=== PATIENT | female | born 1965 | race Caucasian/White ===

== ENCOUNTER 2020-02-09 18:08 | Observation (INO) | payer OTHER, SELFPAY ==
--- NOTE | ~2020-02-09 | XR_ITS ---
EXAMINATION: XR chest 1V portable EXAM DATE: 02/09/2020 19:18 INDICATION: History of stroke. Right arm tingling, right-sided chest pain. TECHNIQUE: Portable AP frontal chest x-ray was obtained. There is no prior study for comparison. FINDINGS: There is right upper lobe granuloma. The lungs are otherwise clear. There are no pleural e ffusions. The cardiomediastinal silhouette is within normal limits. There is no pneumothorax suspec clint. The bones and soft tissues are unremarkable. Cervical fusion hardware. IMPRESSION: No acute cardiopulmonary findings. Reviewed, dictated and finalized at location A.
--- NOTE | ~2020-02-09 | CT_ITS ---
EXAMINATION: CT brain wo con EXAM DATE: 02/09/2020 19:09 INDICATION: Right upper extremity drift. Thyroid cancer. TECHNIQUE: Spiral CT of the head was performed without contrast. Axial, coronal and sagittal images were reviewed. The dose-length product (DLP) for this examination was 605.33 mGy-cm. The exposure w as tailored according to patient size, and iterative reconstruction (ASIR) was used as additional dos e reduction technique. There is no prior study for comparison. FINDINGS: There is no acute intraparenchymal hemorrhage. No evidence of intraparenchymal brain mass lesion. No evidence of acute infarction. There is no mass effect or midline shift. The ventricles are normal in size. There are no extra-axial collections. There are no acute calvarial fractures. T he orbits are unremarkable. Soft tissue is unremarkable. The visualized sinuses and mastoid air erika ls are well aerated. IMPRESSION: 1. No acute intracranial findings. Reviewed, dictated and finalized at location A.
--- NOTE | ~2020-02-09 | CT_ITS ---
EXAMINATION: CTA brain carotid EXAM DATE: 02/09/2020 20:37 INDICATION: Right extremity paresthesia, right arm drift. TECHNIQUE: Spiral CTA of the carotid arteries was performed with intravenous injection 100 cc of Om nipaque 350. Axial, coronal, sagittal reformatted images reviewed. Additional reformatted images cre ated on dedicated 3-D workstation. NASCET comparable standard used to assess the degree of arterial stenosis. Spiral CT angiogram cerebral arteries performed with the same intravenous injection of con trast. Source images of the brain CTA transferred to dedicated workstation for 3-D rotational image c reation. Coronal, sagittal maximum intensity pixel images also reviewed. The dose-length product (D LP) for this examination was 1104.43 mGy-cm. The exposure was tailored according to patient size, a nd iterative reconstruction (ASIR) was used as additional dose reduction technique. Correlation is ma de to head CT earlier same date. FINDINGS: Mild bilateral carotid bulb arterial sclerosis, 0% stenosis bilaterally. Carotid siphons ar e widely patent. Vertebral arteries are codominant. There is no carotid or vertebral basilar arteria l dissection or fibromuscular dysplasia. There are no cerebral artery aneurysms. There is symmetric c erebral artery arborization. The sagittal, transverse and sigmoid sinuses enhance normally, no venous sinus thrombosis. Internal cerebral veins also enhance normally. IMPRESSION: No carotid stenosis or acute findings. Reviewed, dictated and finalized at location A.
--- NOTE | ~2020-02-09 | MR_ITS ---
EXAMINATION: MR brain/brain stem wo/w con DATE: 02/10/2020 15:09 INDICATION: Paresthesias. Cerebral vascular accident. TECHNIQUE: Magnetic resonance imaging (MRI) of the brain and brainstem was performed without and with 12 mL MultiHance intravenous contrast. Sequences included sagittal and axial T1-weighted FSE, axial diffusion-weighted FS EPI, axial T2*-weighted GRE, axial T2-weighted FLAIR Propeller, and axial T2-we ighted Propeller. Postcontrast sequences included axial and coronal T1-weighted FSE. Apparent diffusi on coefficient (ADC) maps were created. COMPARISON: Head CT 02/09/2020 FINDINGS: There is an empty sella. There are scattered areas of nonspecific increased T2-weighted s ignal intensity in the cerebral white matter, which is within normal limits for the patient's age. Th ere is no intracranial hemorrhage, acute infarction, or abnormal intracranial mass lesion. The ventri cles are normal in size. The orbits are normal. The paranasal sinuses are clear. The mastoid air cell s are normal. IMPRESSION: 1. No acute intracranial pathology. Reviewed, dictated and finalized at location A.
[2020-02-09 18:29] VITALS: BP 142/67; PULSE 71; RESP 12; TEMP 37; O2SAT 97
--- NOTE | 2020-02-09 18:38 | ECG_ITS ---
Measurements Intervals Heath Rate: 88 P: 68 SC: 180 QRS: -48 QRSD: 93 T: 62 QT: 380 QTc: 461 Interpretive Statements SINUS RHYTHM LEFT ANTERIOR FASCICULAR BLOCK BASELINE ARTIFACT- I, III, AVL, V2 ABNORMAL ECG Electronically Signed On 02-09-2020 21:29:47 CDT by John Mccloud D.O.
[2020-02-09 19:03] LABS: Basophils Absolute Auto 0.1 K/mm3 (0.0-0.1); Basophils Percent Auto 0.8 % (0.2-1.2); Eosinophils Percent Auto 0.1 % (0-4.4); Hematocrit 39.2 % (37.0-47.0); Hemoglobin 13.4 g/dL (12.0-15.0); Immature Granulocyte Absolute 0.04 K/mm3 (0.00-0.031); Immature Granulocyte Percent A 0.3 % (0-0.5); Lymphocytes Absolute Auto 4.47 K/mm3 (0.9-3.2); Lymphocytes Percent Auto 38.6 % (18.3-44.2); Mean Corpuscular HGB Conc 34.2 g/dl (32-36); Mean Corpuscular Hemoglobin 28.9 pg (26-34); Mean Corpuscular Volume 84.7 fl (80-100); Mean Platelet Volume 8.9 fl (7.4-10.4); Monocytes Absolute Auto 0.5 K/mm3 (0.1-0.6); Monocytes Percent Auto 4.6 % (2.6-8.5); Neutrophils Absolute Auto 6.5 K/mm3 (1.3-6.7); Neutrophils Percent Auto 55.6 % (45.5-73.1); Platelet Count Result 319 k/mm3 (150-375); Red Blood Count 4.63 M/mm3 (4.2-5.4); Red Cell Distribution Width 12.8 % (11.5-14.5); White Blood Count 11.6 K/mm3 (4.5-10.0)
[2020-02-09 19:14] LABS: Anion Gap 2 mmol/L (8-16); Atypical Lymphocytes Present; Blood Urea Nitrogen 9 mg/dL (7-17); Calcium 9.4 mg/dL (8.4-10.2); Carbon Dioxide 32 mmol/L (22-30); Chloride 102 mmol/L (98-107); Estimated CRCL calculation 77 ml/min; Estimated Glomerular Filt Rate > 60; Glucose 268 mg/dL (65-105); Platelet Estimate Adequate (Adequate); Potassium 4.2 mmol/L (3.4-5.0); Sodium 136 mmol/L (137-145)
[2020-02-09 19:18] LABS: INR 0.9; Prothrombin Time 12.1 Seconds (11.1-14.7)
[2020-02-09 19:19] LABS: Partial Thromboplastin Time 36.6 SECONDS (22.3-36.8)
[2020-02-09 19:21] LABS: Glucose Point of Care 238 (65-105)
[2020-02-09 19:26] LABS: Troponin I < 0.012 ng/mL (0.000-0.034)
[2020-02-09 19:30] VITALS: BP 121/82; PULSE 89; RESP 18; O2SAT 97
--- NOTE | 2020-02-09 19:37 | ED.GENADULT ---
HPI - General Adult General Chief complaint: Extremity Problem,Nontraumatic Stated complaint: PINS AND NEEDLE SENSATION Time Seen by Provider: 02/09/20 18:31 History of Present Illness HPI narrative: Patient is a 54-year-old female who presents ER with body tingling. Patient reports that she was at home when she started develop numbness and tingling to bilateral hands and arms, the entirety of her face, and then her right foot. Symptoms have been persistent. No slurred speech or functional weakness. Patient does have history of previous CVA. Patient is unsure of what time the symptoms began but thinks it could be anywhere from 2 to 3 hours prior to arrival. Patient also reports she has posterior headache. She does have history of migraines. Does not typically have neurologic variant like this. Related Data Home Medications Medication Instructions Recorded Confirmed glipizide 10 mg PO DAILY 02/09/20 02/09/20 insulin glargine [Basaglar KwikPen 34 unit SUBCUT QPM 02/09/20 02/09/20 U-100 Insulin] levothyroxine 137 mcg PO DAILY 02/09/20 02/09/20 liraglutide [Victoza 2-Claudio] 0.6 mg SUBCUT DAILY 02/09/20 02/09/20 metformin 500 mg PO BID 02/09/20 02/09/20 olanzapine 10 mg PO DAILY 02/09/20 02/09/20 omeprazole 20 mg PO DAILY 02/09/20 02/09/20 sumatriptan succinate 100 mg PO DAILY PRN 02/09/20 02/09/20 tizanidine 2 mg PO HS 02/09/20 02/09/20 trazodone 200 mg PO HS 02/09/20 02/09/20 vit D3-vit K2-ca fructoborate 1 tablet PO WEEKLY 02/09/20 02/09/20 Allergies Allergy/AdvReac Type Severity Reaction Status Date / Time fluoxetine [From Prozac] Allergy Unknown Verified 02/09/20 18:39 ketorolac [From Toradol] Allergy Unknown Verified 02/09/20 18:38 steroids Allergy Unknown Uncoded 02/09/20 18:39 Review of Systems Review of Systems: All systems reviewed & are unremarkable except as noted in HPI and below Constitutional: Constitutional: Denies chills, Denies fever(s) and Denies weakness Eyes: Eyes: Denies change in vision ENT: Denies nasal congestion and Denies sore throat Respiratory: Respiratory: Denies cough and Denies dyspnea Gastrointestinal: Gastrointestinal: Denies abdominal pain, Reports nausea and Denies vomiting Neurologic: Denies dizziness, Reports headache(s), Reports numbness and Denies weakness PMFSH Past Medical History Medical History (Updated 02/10/20 @ 00:20 by Miguel Agrawal MD) CVA (cerebral vascular accident) Diabetes type 2, controlled Hypothyroidism Migraine Surgical History Surgical History (Updated 02/09/20 @ 19:49 by Miguel Agrawal MD) H/O: hysterectomy History of cholecystectomy Previous section Family History Family History (Updated 02/09/20 @ 21:34 by Chandler Sim RN) Grandparent Acute myocardial infarction Hypertension Diabetes mellitus Social History Social History (Updated 02/09/20 @ 19:49 by Miguel Agrawal MD) Smoking packs per day: 0.5 Smoking cigarettes per day: 10.0 Years smoked: 10 Smoking pack-years: 5.00 Smoking status: Current every day smoker Tobacco type: cigarettes Second hand tobacco smoke exposure: No Alcohol intake: never Substance use: never Substance use type: does not use Gender identity (if verbalized by the patient): Female Sexual Orientation (if Verbalized by the Patient): Straight or Heterosexual Spiritual care concerns: No Exam Narrative: Exam Narrative: GENERAL: Well-appearing, well-nourished, and in no acute distress. HEAD: Normocephalic, atraumatic. EYES: PERRL and EOMI. ENT: Mucous membranes moist. CHEST: Clear to auscultation. No respiratory distress. HEART: Regular rate and rhythm. Normal peripheral pulses. ABDOMEN: Soft, nontender, nondistended. EXTREMITIES: Normal range of motion. No edema. SKIN: Warm, dry, no rash. NEURO: Cranial nerves II through XII intact. No sharp touch deficit to the face/arms/legs despite feeling of paresthesia. No lower extremity drift. Very slight
[2020-02-09] MEDS: ONDANSETRON INJ 4 MG/2 ML VIAL IV PUSH (19:39)
[2020-02-09] MEDS: MORPHINE SULFATE (*CRX) 2 MG/ML INJ IV PUSH (19:39)
[2020-02-09] MEDS: ASPIRIN 81 MG ENTERIC TABLET PO (20:45)
[2020-02-09] MEDS: CLOPIDOGREL BISULFATE 75 MG TABLET PO (20:45)
[2020-02-09 20:46] VITALS: BP 120/79; PULSE 86; RESP 20; O2SAT 100
[2020-02-09 21:10] VITALS: BP 145/92; PULSE 84; RESP 18; TEMP 36.3; O2SAT 100; BMI 26.5
--- NOTE | 2020-02-09 21:38 | ADMGEN ---
This patient, Kathi Minaya, was admitted to 3 [facility] Surg Room 300-01. Patient/family oriented to hospital policies and general routines including ID bracelet, bed and alarms, visiting hours, pain management, procedures, bathroom and other care routines, personal items, smoking policy, room service/diet, and visiting hours. Information on how to activate the Rapid Response Team has been discussed. Patient/Family are encouraged to report perceived risks to care and to ask questions if they do not understand what they are told or what they should do.
[2020-02-09 22:00] VITALS: BP 145/92; PULSE 84; RESP 18; TEMP 36.3; O2SAT 100
[2020-02-10] VITALS (9 sets, daily range): BP systolic 112–138; BP diastolic 66–86; PULSE 79–90; RESP 16; TEMP 36.3–36.9; O2SAT 95–99
--- NOTE | 2020-02-10 | ECHO_ITS ---
Patient Info Name: Kathi Minaya Age: 54 years : 1965 Gender: Female Ht: 63 in Wt: 145 lbs BSA: 1.72 m2 HR: 73 bpm BP: 138 / 86 mmHg Heart Rhythm: Sinus Rhythm Exam Date: 02/10/2020 7:30 AM Exam Location: [facility] Pulmonary Patient Status: Inpatient Admit Date: 02/09/2020 Staff Ordering Physician: Miguel Agrawal MD Metallurgical Specialist: Regina Hollingsworth RDCS Attending Provider: Marly Muñoz PA-C Referring Physician: Nghia CHERRY; Exam Type: CA echo limited w bubble study Study Info Limited two-dimensional transthoracic echocardiogram is performed with agitated saline. Contrast/Agitated Saline Contrast/Ag. Saline: Agitated Saline Amount: 7.00 ml Summary 1. Intact interatrial septum visualized by agitated saline imaging. 2. aggitated saline injection did not reveal any evidence of an intracardiac shunt. Left Ventricle Left ventricular chamber dimension is normal. Left ventricular systolic function is normal, estimated at 60-65%. Right Ventricle Right ventricular chamber dimension is normal. Left Atria Left atrial chamber dimension is normal. Right Atria Right atrial chamber dimension is normal. Atrial Septum Intact interatrial septum visualized by agitated saline imaging. aggitated saline injection did not reveal any evidence of an intracardiac shunt. Aortic Valve The aortic valve is normal. Pulmonic Valve The pulmonic valve is not well visualized. Mitral Valve The mitral valve has normal leaflets. Tricuspid Valve The tricuspid valve leaflets are normal. Pericardium/Pleural The pericardium appears normal. Aorta The aortic root size at the sinus of Valsalva is not well visualized. Report Signatures
--- NOTE | 2020-02-10 04:29 | PM.IMHP ---
H&P: HPI History of Present Illness Date/Time: 02/10/20 04:29 Chief complaint: Stroke Symptoms Narrative: Kathi Minaya is a 54 year old female Who just recently moved here from [place]. The patient has had neck surgery and back Surgery in the past. She also has bipolar disorder. She is also diabetic. She denies any peripheral neuropathy. She not denies any recent injury. She recently did move here from [place]. She has been under a lot of stress. She states that she checked her blood sugars today and they are in the 200s which is better than with the usually are. They are usually not very well controlled. She denies having any peripheral neuropathy. She denies having any neck injury although she has had neck surgery in the past. She states that she found a primary care doctor but cannot get into the primary care doctor until March. The patient stated that she has had a stroke before please not on any aspirin or Plavix. The patient was at home today when she developed a migraine and had tingling to bilateral hands and arms. Her entire face in the right foot was numb. She states she has not had these symptoms with migraines in the past. She does take Imitrex but did not take any today. The symptoms began 2-3 hours prior to coming to the emergency room. There was some discussion about tPA but the patient refused. The patient's speech is clear and she has no focal weakness. There are too many risk involved for the patient have tPA at this time. Her stroke scale was 1 and then 0. Head neck CTA was read as no carotid stenosis or acute findings. CT scan of the head no acute intracranial findings. Patient continues to complain of a headache or migraine. She states that her migraines are usually in the front but today it is in the back. She has no difficulty speaking walking or moving. She moves all extremities no focal weakness. The patient has had a history of having carpal tunnel release in the past. She said this feels different. Neurology has been consulted and agreed to see the patient. Patient is being admitted observation to [facility] on the date of service of 02/10/2020 Review of Systems Review of Systems: All systems reviewed & are unremarkable except as noted in HPI and below Constitutional: Constitutional: Reports as per HPI and Reports no additional constitutional complaints Eyes: Eyes: Reports as per HPI and Reports no additional eye complaints ENT: Reports system reviewed and no additional complaints, except as documented and Reports Normal hearing present Cardiovascular: Cardiovascular: Reports no additional cardiovascular complaints Respiratory: Respiratory: Reports no additional respiratory complaints and Reports no additional respiratory complaints Gastrointestinal: Gastrointestinal: Reports as per HPI and Reports no additional gastrointestinal complaints Musculoskeletal: Musculoskeletal: Reports no additional musculoskeletal complaints Integumentary/Breasts: Skin/Breast: Reports system reviewed and no additional complaints, except as docu and Reports as per HPI Neurologic: Reports system reviewed and no additional complaints, except as documented, Reports as per HPI and Reports Normal hearing present Psychiatric: Psychiatric: Reports no additional psychiatric complaints and Reports as per HPI Endocrine: Endocrine: Reports no additional endocrine complaints Hematologic/Lymphatic: Hematologic/Lymphatic: Reports no additional hematologic/lymphatic complaints Allergic/Immunologic: Allergic/Immunologic: Reports no additional allergic/immunologic complaints PMFSH Past Medical History Medical History (Updated 02/10/20 @ 04:38 by Fany Reynolds NP) Bipolar disorder CVA (cerebral vascular accident) Depression with anxiety Diabetes type 2, controlled Hypothyroidism Migraine Surgical History Surgical History (Updated 02/10/20 @ 04:41 by Fany Reynolds NP) H/O left knee surgery H/O: hy
[2020-02-10] MEDS: LEVOTHYROXINE SODIUM 25 MCG TABLET PO (06:21)
[2020-02-10] MEDS: glipiZIDE 5 MG TABLET 10 MG PO (06:21)
[2020-02-10] MEDS: LEVOTHYROXINE SODIUM 112 MCG TABLET PO (06:21)
[2020-02-10] MEDS: SUMAtriptan SUCCINATE 25 MG TABLET 100 MG PO (06:23)
[2020-02-10] MEDS: LORazepam INJ (*CRX) 2 MG/ML VIAL 0.5 MG IV PUSH (06:28)
[2020-02-10 06:31] LABS: Basophils Absolute Auto 0.1 K/mm3 (0.0-0.1); Basophils Percent Auto 0.6 % (0.2-1.2); Eosinophils Percent Auto 0.1 % (0-4.4); Hematocrit 37.5 % (37.0-47.0); Hemoglobin 12.9 g/dL (12.0-15.0); Immature Granulocyte Absolute 0.02 K/mm3 (0.00-0.031); Immature Granulocyte Percent A 0.2 % (0-0.5); Lymphocytes Absolute Auto 3.84 K/mm3 (0.9-3.2); Lymphocytes Percent Auto 37.3 % (18.3-44.2); Mean Corpuscular HGB Conc 34.4 g/dl (32-36); Mean Corpuscular Hemoglobin 28.2 pg (26-34); Mean Corpuscular Volume 82.1 fl (80-100); Monocytes Absolute Auto 0.5 K/mm3 (0.1-0.6); Neutrophils Absolute Auto 5.9 K/mm3 (1.3-6.7); Neutrophils Percent Auto 56.8 % (45.5-73.1); Platelet Count Result 312 k/mm3 (150-375); Red Blood Count 4.57 M/mm3 (4.2-5.4); Red Cell Distribution Width 12.6 % (11.5-14.5); White Blood Count 10.3 K/mm3 (4.5-10.0)
[2020-02-10 06:48] LABS: Alanine Aminotransferase 19 U/L (4-35); Albumin Level 3.7 g/dL (3.5-5.1); Alkaline Phosphatase 75 U/L (38-126); Anion Gap 5 mmol/L (8-16); Aspartate Amino Transferase 22 U/L (14-36); Bilirubin,Total 0.5 mg/dL (0.2-1.3); Blood Urea Nitrogen 10 mg/dL (7-17); Carbon Dioxide 31 mmol/L (22-30); Chloride 101 mmol/L (98-107); Estimated CRCL calculation 91 ml/min; Estimated Glomerular Filt Rate > 60; Glucose 257 mg/dL (65-105); Magnesium 1.9 mg/dL (1.6-2.3); Potassium 4.2 mmol/L (3.4-5.0); Sodium 137 mmol/L (137-145)
[2020-02-10 08:34] LABS: Free T4 Free Thyroxine Reflex 0.94 ng/dL (0.78-2.19)
[2020-02-10] MEDS: ASPIRIN 81 MG CHEWABLE TABLET PO (08:52)
[2020-02-10] MEDS: NICOTINE (*PBKC) 14 MG PATCH 1 PATCH TRANSDERM (08:53)
[2020-02-10] MEDS: PANTOPRAZOLE SOD SESQUIHYDRATE 20 MG TAB PO (08:53)
[2020-02-10] MEDS: HYDROcodone/acetaminophen (*CRX) 5-325 MG TABLET 1 TAB PO ×2 (08:57→21:32)
[2020-02-10] MEDS: INSULIN ASPART (*BKC) 100 UNITS/ML SUB-Q ×2 (09:04→17:33)
[2020-02-10 09:11] LABS: Glucose Point of Care 242 (65-105)
[2020-02-10 10:42] LABS: Total Triiodothyronine (T3) 1.13 NG/ML (0.97-1.69)
--- NOTE | 2020-02-10 13:44 | PM.IMPN ---
Progress Note: A&P Assessment and Plan (1) Paresthesia: Code(s): R20.2 - Paresthesia of skin Status: Acute Assessment and Plan: complains of tingling in right hand predominantly, and along the right side of body. Etiology is unclear at this time but considerations include acute CVA given her history, carpal tunnel syndroms (hx of bilateral carpal tunnel release), cervical radiculopathy (hx of cervical spine surgery), peripheral neuropathy (hx poorly controlled DM). head CT was negative for any acute findings. CTA head and neck showed no evidence of stenosis. echocardiogram with bubble study was performed and results are pending brain MRI has been ordered and will await results neurology has been consulted recommendations are appreciated continue aspirin (2) Migraine: Qualifiers: Migraine type: without aura Code(s): G43.909 - Migraine, unspecified, not intractable, without status migrainosus Status: Chronic Assessment and Plan: She is complaining of 9/10 occipital migraine pain. No improvement with sumatriptan. No associated visual changes or photophobia. Analgesics available as needed MRI pending Appreciate neurology recommendations. (3) Hypothyroidism: Code(s): E03.9 - Hypothyroidism, unspecified Status: Chronic Assessment and Plan: TSH is elevated at 17. T3 and T4 and within normal limits. She reports compliance with her levothyroxine and denies missing any doses. Reports she had TSH checked about 3 months ago while living in [place] and was told everything was normal at that time. Increase levothyroxine to 150 mg. She will need to repeat TSH with reflex in 4-6 weeks. 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 Blood sugars have been ranging in the 250s. She reports it is unusual for her blood sugars to be under 200. Continue Accu-Cheks ACHS, sliding-scale insulin, and hypoglycemic protocol continue glucotrol Begin lantus with 20% reduction of home dose (5) Bipolar disorder: Code(s): F31.9 - Bipolar disorder, unspecified Status: Chronic Assessment and Plan: Mood is stable at this time. Continue zyprexa. (6) Depression with anxiety: Code(s): F41.8 - Other specified anxiety disorders Status: Chronic Assessment and Plan: Mood is stable at this time. Continue trazodone. Subjective Date/time seen: 02/10/20 13:44 Interval history: date of service: 02/10/2020 Kathi Minaya is a right-handed 54-year-old female with a history of bipolar disorder, CVA, type 2 diabetes mellitus, and migraines who is seen in follow-up for complains of migraine and skin paresthesias. She is currently endorsing a 9/10 occipital headache. She denies any associated visual changes. she denies photophobia or phonophobia. she also complains of tingling on her right side, especially in her right he attend. She notes that her right foot tingles more when she bears weight. She denies speech changes, dysphagia, loss of balance or coordination, gait changes,weakness, or confusion. she feels dizzy upon standing. She endorses nausea but has not vomited. Appetite has been good. No additional concerns at this time. no shortness of breath, cough, chest pain, palpitations, abdominal pain, bleeding, or bruising. Review of Systems Review of Systems: Narrative: Twelve systems reviewed with pertinent positives and negatives as per HPI. Exam Narrative: Exam Narrative: Ms. Minaya is a well-nourished, well-appearing right-handed 54-year-old female who is lying in left lateral decubitus position. She appears comfortable and is in NARD. HR 86, BP 138/86, R 16, T 97.3?, 96% on room air N
[2020-02-10] MEDS: LORazepam INJ (*CRX) 2 MG/ML VIAL 1 MG IV PUSH (14:31)
[2020-02-10] MEDS: HYDROcodone/acetaminophen (*CRX) 10-325 MG TABLET 1 TAB PO (16:17)
--- NOTE | 2020-02-10 16:18 | WPDNEURCNPN ---
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: with process planner use Code(s): E11.9 - Type 2 diabetes mellitus without complications Status: Acute (2) Depression with anxiety: Code(s): F41.8 - Other specified anxiety disorders Status: Chronic (3) Bipolar disorder: Code(s): F31.9 - Bipolar disorder, unspecified Status: Chronic (4) Migraine: Qualifiers: Migraine type: without aura Code(s): G43.909 - Migraine, unspecified, not intractable, without status migrainosus Status: Chronic (5) Hypothyroidism: Code(s): E03.9 - Hypothyroidism, unspecified Status: Chronic (6) Diabetes type 2, controlled: Code(s): E11.9 - Type 2 diabetes mellitus without complications Status: Chronic (7) Paresthesia: Code(s): R20.2 - Paresthesia of skin Status: Acute Additional Plan in the brain MRI shows any evidence of stroke than 1 has to pursue with the echocardiogram to make sure nothing is happening in her heart right now her symptoms could very well be related to combination of the cervical surgery in the past cervical radiculopathy residual carpal tunnel syndrome and also combined with the lumbar radiculopathy as the symptoms are mostly on the right side in the right arm hand and right leg without any focal motor deficit Consult date: 02/10/20 Time Seen: 15:45 HPI: Kathi Minaya is a 54 year old female I am consulted to see her because of the paresthesias of right more than the left side which are stable results of the brain MRI are pending she does complains of neck pain which she has had in the past and also has had back surgery she tells me that she had stroke up roughly about 3 years ago while she was in [place] and was not on aspirin I asked her whether she had brain bleed or it was a speech ischemic stroke she is quite clear that she had a CT ischemic stroke we have started on aspirin and physical status is stable there is no change in the mental status and there is no weakness involved she is able to walk to the bathroom fairly decent and well Review of Systems Review of Systems: All systems reviewed & are unremarkable except as noted in HPI and below PMFSH Past Medical History Medical History Bipolar disorder CVA (cerebral vascular accident) Depression with anxiety Diabetes type 2, controlled Hypothyroidism Migraine Surgical History Surgical History H/O left knee surgery H/O: hysterectomy History of back surgery History of bilateral carpal tunnel release History of cholecystectomy History of neck surgery Previous section Family History Family History Grandparent Acute myocardial infarction Hypertension Diabetes mellitus Father Murder Mother Lung cancer Social History Social History Social History: the patient is and has a fiancee. She has 3 grown children. She is on disability. She denies any alcohol use. She does occasionally smoke marijuana. She still continues to smoke half a pack a cigarettes a day for over 10 years. She recently moved in with her best friend in this area she otherwise she is from [place]. She now has a fiancee. She does not have a durable power of staff attorney for health care and desires to be a full code. She denies any illicit drugs but has used marijuana to help with the pain. Smoking packs per day: 0.5 Smoking cigarettes per day: 10.0 Years smoked: 10 Smoking pack-years: 5.00 Smoking status: Current every day smoker Tobacco type: cigarettes Second hand tobacco smoke exposure: No Alcohol intake: never Substance use type: marijuana Living arrangements: with friend(s) [facility]
[2020-02-10 21:14] LABS: Glucose Point of Care 275 (65-105)
[2020-02-10] MEDS: traZODone HCL 50 MG TABLET 200 MG PO (21:32)
[2020-02-10] MEDS: TIZANIDINE HCL 2 MG TABLET PO (21:32)
[2020-02-10] MEDS: INSULIN GLARGINE (*BKC) 100 UNITS/ML 28 UNITS SUB-Q (21:36)
[2020-02-10 21:42] LABS: Glucose Point of Care 199 (65-105)
[2020-02-11] VITALS: PULSE 78
[2020-02-11 04:00] VITALS: PULSE 93
[2020-02-11 06:00] VITALS: BP 108/76; PULSE 87; RESP 18; TEMP 36.3; O2SAT 97
[2020-02-11 06:24] LABS: Hematocrit 38.2 % (37.0-47.0); Hemoglobin 12.9 g/dL (12.0-15.0); Mean Corpuscular HGB Conc 33.8 g/dl (32-36); Mean Corpuscular Hemoglobin 28.7 pg (26-34); Mean Corpuscular Volume 85.1 fl (80-100); Mean Platelet Volume 9.2 fl (7.4-10.4); Platelet Count Result 278 k/mm3 (150-375); Red Blood Count 4.49 M/mm3 (4.2-5.4); Red Cell Distribution Width 12.6 % (11.5-14.5); White Blood Count 9.4 K/mm3 (4.5-10.0)
[2020-02-11] MEDS: LEVOTHYROXINE SODIUM 150 MCG TABLET PO (06:29)
[2020-02-11] MEDS: glipiZIDE 5 MG TABLET 10 MG PO (06:29)
[2020-02-11] MEDS: HYDROcodone/acetaminophen (*CRX) 5-325 MG TABLET 1 TAB PO (06:31)
[2020-02-11 07:09] LABS: Anion Gap 3 mmol/L (8-16); Blood Urea Nitrogen 14 mg/dL (7-17); Calcium 9.1 mg/dL (8.4-10.2); Carbon Dioxide 33 mmol/L (22-30); Chloride 101 mmol/L (98-107); Estimated CRCL calculation 67 ml/min; Estimated Glomerular Filt Rate > 60; Glucose 271 mg/dL (65-105); Potassium 4.1 mmol/L (3.4-5.0); Sodium 137 mmol/L (137-145)
[2020-02-11 08:00] VITALS: PULSE 91
[2020-02-11] MEDS: LORazepam INJ (*CRX) 2 MG/ML VIAL 0.5 MG IV PUSH (08:01)
[2020-02-11] MEDS: NICOTINE (*PBKC) 14 MG PATCH 1 PATCH TRANSDERM (08:03)
[2020-02-11] MEDS: PANTOPRAZOLE SOD SESQUIHYDRATE 20 MG TAB PO (08:03)
[2020-02-11] MEDS: ASPIRIN 81 MG CHEWABLE TABLET PO (08:04)
[2020-02-11] MEDS: INSULIN ASPART (*BKC) 100 UNITS/ML SUB-Q (08:14)
[2020-02-11 09:34] LABS: Cholesterol 200 mg/dL (0-200); HDL Direct 26 mg/dL; Triglycerides 322 mg/dL (<150)
[2020-02-11 09:38] LABS: LDL Cholesterol Direct 115 mg/dL
[2020-02-11 09:45] LABS: Alanine Aminotransferase 19 U/L (4-35); Albumin Level 3.4 g/dL (3.5-5.1); Alkaline Phosphatase 75 U/L (38-126); Aspartate Amino Transferase 21 U/L (14-36); Bilirubin,Total 0.4 mg/dL (0.2-1.3)
--- NOTE | 2020-02-11 10:39 | PM.DS ---
DS: Admitting Diagnosis Admitting Diagnosis Admitting Diagnosis: Stroke Symptoms DS: Discharge Diagnosis Discharge Diagnosis (1) Paresthesia: Code(s): R20.2 - Paresthesia of skin Status: Acute Assessment and Plan: She complained of tingling in right hand predominantly, and along the right side of body. Initially concerning for acute CVA. She had negative workup including head CT which showed no acute findings, CTA head/neck with no evidence of stenosis, brain MRI with no acute findings, and limited echocardiogram with bubble study which showed intact interatrial septum with no evidence of intracardiac shunt and EF 60-65%. She was seen in consultation by neurology and initiated on daily baby aspirin. Additional considerations include carpal tunnel syndrome (hx of bilateral carpal tunnel release), cervical radiculopathy (hx of cervical spine surgery), and peripheral neuropathy (hx poorly controlled DM). Her symptoms improved. She will follow up with Dr. Zacarias and may benefit from EMG/nerve conduction studies should symptoms persist. (2) Migraine: Qualifiers: Migraine type: without aura Code(s): G43.909 - Migraine, unspecified, not intractable, without status migrainosus Status: Chronic Assessment and Plan: She presented with 9/10 occipital migraine without associated photophobia, phonophobia, visual changes, or aura that did not improve with her home sumatriptan. Headache resolved with analgesics and rest. No acute findings on MRI. Continue sumatriptan as needed. (3) Hypothyroidism: Code(s): E03.9 - Hypothyroidism, unspecified Status: Chronic Assessment and Plan: TSH is elevated at 17. T3 and T4 within normal limits. She reports compliance with her levothyroxine and denies missing any doses. Reports she had TSH checked about 3 months ago while living in [place] and was told everything was normal at that time. Levothyroxine was increased to 150 mg. She will need to repeat TSH with reflex in 4-6 weeks. She is aware of these findings. (4) Type 2 diabetes mellitus: Qualifiers: Diabetes mellitus terminal make up operator insulin use: with custodial use Code(s): E11.9 - Type 2 diabetes mellitus without complications Status: Acute Assessment and Plan: A1c is 10.0. Blood sugars were reviewed daily and not at goal in the 200-250 range. She reports it is unusual for her blood sugars to be under 200. Importance of compliance with medications and proper diet were discussed extensively. Continue metformin, glucotrol, victoza, and insulin. I encouraged her to monitor and record blood sugars tid with meals and bring a log to PCP for review and adjustment of medications as needed. May benefit from endocrinology referral. (5) Bipolar disorder: Code(s): F31.9 - Bipolar disorder, unspecified Status: Chronic Assessment and Plan: Mood remained stable. Continue zyprexa. (6) Depression with anxiety: Code(s): F41.8 - Other specified anxiety disorders Status: Chronic Assessment and Plan: Continue trazodone. (7) Tobacco abuse: Code(s): Z72.0 - Tobacco use Status: Acute Assessment and Plan: She smokes 1/2 ppd. I counseled her on smoking cessation for 7 minutes. She understands the need for complete smoking cessation. DS: Summary Hospital Course Reason for hospitalization: Paresthesias of right hand Hospital Course: Date of admission: 02/09/20 Date of discharge: 02/11/20 Kathi Minaya is a right-handed 54-year-old female with a history of bipolar disorder, CVA, type 2 diabetes mellitus, hypothyroidism, and migraines who presented to the emergency department on 02/09/2020 with complaints of tingling in her bilateral hands, arms, face, and right foot for approximately 2-3 hours prior to arrival as well as posterior headache. At presentation, her stroke scale was 0. tPA was discussed but she
[2020-02-11 10:42] VITALS: O2SAT 97
[2020-02-11 11:38] LABS: Glucose Point of Care 231 (65-105)
== END 2020-02-11 11:40 | disposition home or self-care (01) ==
LOC: ANHED 18:45 → ANH3MEDSUR 20:49
PROVIDERS: Nurse Practitioner; Physician Assistant; Admitting Provider Family Medicine; Emergency Provider Emergency Medicine; Visit Provider Internal Medicine
DX: R20.2 Paresthesia of skin (principal); E11.9 Type 2 diabetes mellitus without complications; E03.9 Hypothyroidism, unspecified; F41.8 Other specified anxiety disorders; F17.210 Nicotine dependence, cigarettes, uncomplicated; F31.9 Bipolar disorder, unspecified; G43.909 Migraine, unspecified, not intractable, without status migrainosus; Z86.73 Personal history of transient ischemic attack (TIA), and cerebral infarction without residual deficits; R07.9 Chest pain, unspecified
CPT/HCPCS: 36415; 70450; 70496; 70498; 70553; 71045; 80048; 80053; 80061; 82607; 82728; 82948; 83036; 83735; 84439; 84443; 84480; 84484; 85025; 85027; 85610; 85730; 93005; 93308; 96374; 96375; 96376; 99285; A9270; A9577; G0378; G0379; J1815; J2060; J2270; J2405; Q9967

== ENCOUNTER 2020-05-21 09:55 | Emergency (ER) | payer OTHER, SELFPAY ==
[2020-05-21 10:05] VITALS: BP 117/82; PULSE 83; RESP 16; TEMP 36.2; O2SAT 99
[2020-05-21 11:05] VITALS: BP 141/88; PULSE 84; RESP 18; O2SAT 99
[2020-05-21] MEDS: MORPHINE SULFATE (*CRX) 2 MG/ML INJ IV PUSH (11:43)
[2020-05-21] MEDS: METOCLOPRAMIDE HCL INJ 10 MG/2 ML VIAL IV PUSH (11:44)
[2020-05-21] MEDS: SODIUM CHLORIDE 0.9% IV 1,000 ML 999 ML IV CONT (11:44)
[2020-05-21 11:49] LABS: Basophils Absolute Auto 0.1 K/mm3 (0.0-0.1); Basophils Percent Auto 0.7 % (0.2-1.2); Eosinophils Absolute Auto 0.2 K/mm3 (0-0.3); Eosinophils Percent Auto 1.5 % (0-4.4); Hematocrit 42.3 % (37.0-47.0); Hemoglobin 14.5 g/dL (12.0-15.0); Immature Granulocyte Absolute 0.06 K/mm3 (0.00-0.031); Immature Granulocyte Percent A 0.4 % (0-0.5); Lymphocytes Absolute Auto 4.66 K/mm3 (0.9-3.2); Lymphocytes Percent Auto 33.6 % (18.3-44.2); Mean Corpuscular HGB Conc 34.3 g/dl (32-36); Mean Corpuscular Hemoglobin 28.7 pg (26-34); Mean Corpuscular Volume 83.8 fl (80-100); Mean Platelet Volume 9.3 fl (7.4-10.4); Monocytes Absolute Auto 0.6 K/mm3 (0.1-0.6); Monocytes Percent Auto 4.2 % (2.6-8.5); Neutrophils Absolute Auto 8.3 K/mm3 (1.3-6.7); Neutrophils Percent Auto 59.6 % (45.5-73.1); Platelet Count Result 275 k/mm3 (150-375); Red Blood Count 5.05 M/mm3 (4.2-5.4); Red Cell Distribution Width 12.9 % (11.5-14.5); White Blood Count 13.9 K/mm3 (4.5-10.0)
[2020-05-21 12:01] LABS: Alanine Aminotransferase 40 U/L (4-35); Albumin Level 4.2 g/dL (3.5-5.1); Alkaline Phosphatase 110 U/L (38-126); Anion Gap 7 mmol/L (8-16); Aspartate Amino Transferase 30 U/L (14-36); Bilirubin,Total 0.5 mg/dL (0.2-1.3); Blood Urea Nitrogen 14 mg/dL (7-17); Calcium 9.3 mg/dL (8.4-10.2); Carbon Dioxide 31 mmol/L (22-30); Chloride 96 mmol/L (98-107); Estimated CRCL calculation 90 ml/min; Estimated Glomerular Filt Rate > 60; Glucose 336 mg/dL (65-105); Potassium 4.9 mmol/L (3.4-5.0); Sodium 134 mmol/L (137-145)
--- NOTE | 2020-05-21 14:37 | ED.GENADULT ---
HPI - General Adult General Chief complaint: Headache Stated complaint: MIGRAINE GAMBOA X4D Time Seen by Provider: 05/21/20 11:06 Source: patient Mode of arrival: ambulatory Limitations: no limitations History of Present Illness HPI narrative: Patient presents with chief complaint of migraine frontal headache that has been present over the past 4 days and accompanied by nausea and vomiting and slight photophobia. Patient states that generally her migraines are amenable with Advil and Imitrex however this point is not. Patient states that he otherwise feels the same as her previous migraines. Patient states that she is allergic to ketorolac and steroids. Patient states that she has taken her Zofran at home for nausea which has not helped so she has had some vomiting. Patient denies any neurological deficits. Patient speech is intact. Patient denies any head injuries. Related Data Home Medications Medication Instructions Recorded Confirmed Basaglar KwikPen U-100 Insulin 34 unit SUBCUT QPM 02/09/20 02/09/20 Victoza 2-Claudio 0.6 mg SUBCUT DAILY 02/09/20 02/09/20 glipizide 10 mg PO DAILY 02/09/20 02/09/20 metformin 500 mg PO BID 02/09/20 02/09/20 olanzapine 10 mg PO DAILY 02/09/20 02/09/20 omeprazole 20 mg PO DAILY 02/09/20 02/09/20 sumatriptan succinate 100 mg PO DAILY PRN 02/09/20 02/09/20 tizanidine 2 mg PO HS 02/09/20 02/09/20 trazodone 200 mg PO HS 02/09/20 02/09/20 vit D3-vit K2-ca fructoborate 1 tablet PO WEEKLY 02/09/20 02/09/20 Allergies Allergy/AdvReac Type Severity Reaction Status Date / Time fluoxetine [From Prozac] Allergy Unknown Verified 02/09/20 18:39 ketorolac [From Toradol] Allergy Unknown Verified 02/09/20 18:38 steroids Allergy Unknown Uncoded 02/09/20 18:39 Review of Systems Review of Systems: Narrative: CONSTITUTIONAL: Denies fever, chills, or sweats. EYES: Denies visual changes, redness, or discharge. ENT: Denies rhinorrhea, congestion, sore throat, or otalgia. CARDIOVASCULAR: Denies chest pain, palpitations, or edema. RESPIRATORY: Denies cough or dyspnea. GASTROINTESTINAL: Reports nausea and vomiting denies abdominal pain or diarrhea. GENITOURINARY: Denies dysuria or hematuria. SKIN: Denies rash or itching. MUSCULOSKELETAL: Denies back pain, joint pain, or myalgia. NEUROLOGIC: Reports headache, denies numbness, dizziness, or weakness. PSYCHIATRIC: Denies anxiety or depression. [facility] Past Medical History Medical History Bipolar disorder CVA (cerebral vascular accident) Depression with anxiety Diabetes type 2, controlled Hypothyroidism Migraine Surgical History Surgical History H/O left knee surgery H/O: hysterectomy History of back surgery History of bilateral carpal tunnel release History of cholecystectomy History of neck surgery Previous section Family History Family History Grandparent Acute myocardial infarction Hypertension Diabetes mellitus Father Murder Mother Lung cancer Social History Social History Social History: the patient is and has a fiancee. She has 3 grown children. She is on disability. She denies any alcohol use. She does occasionally smoke marijuana. She still continues to smoke half a pack a cigarettes a day for over 10 years. She recently moved in with her best friend in this area she otherwise she is from [place]. She now has a fiancee. She does not have a durable power of city attorney for health care and desires to be a full code. She denies any illicit drugs but has used marijuana to help with the pain. Smoking packs per day: 0.5 Smoking cigarettes per day: 10.0 Years smoked: 10 Smoking pack-years: 5.00 Smoking status: Current every day smoker Tobacco type: cigarettes Second hand tobacco smoke exposure: No Alcohol intake: nev
== END 2020-05-21 13:26 | disposition home or self-care (01) ==
PROVIDERS: Physician Assistant; Emergency Provider Emergency Medicine
DX: G43.001 Migraine without aura, not intractable, with status migrainosus (principal); Z86.73 Personal history of transient ischemic attack (TIA), and cerebral infarction without residual deficits; F41.9 Anxiety disorder, unspecified; E11.9 Type 2 diabetes mellitus without complications; Z79.84 Long term (current) use of oral hypoglycemic drugs; E03.9 Hypothyroidism, unspecified; F17.210 Nicotine dependence, cigarettes, uncomplicated
CPT/HCPCS: 36415; 80053; 85025; 96361; 96374; 96375; 99284; J2270; J2765; J7030

== ENCOUNTER 2020-06-17 16:13 | Emergency (ER) | payer OTHER, SELFPAY ==
--- NOTE | ~2020-06-17 | XR_ITS ---
XR chest 2V DATE: 06/17/2020 18:19 INDICATION: Chest pain TECHNIQUE: PA and lateral views COMPARISON: 02/09/2020 AP chest FINDINGS: Calcified pulmonary, right upper lobe. Additional smaller calcified pulmonary granulomas an d calcified mediastinal nodes, consistent with old granulomatous disease. Normal heart size. No hilar or mediastinal enlargement. No pulmonary infiltrate or consolidation, ple ural effusion or pulmonary vascular congestion or pneumothorax. Surgical clips, right upper quadrant, consistent with cholecystectomy. Status post anterior cervical spine surgical fusion. Mild dextro scoliosis. Degenerative spurring of the thoracic spine. Normal heart size. IMPRESSION: Old pulmonary granulomatous disease No active cardiopulmonary disease Reviewed, dictated and finalized at location A. M BOILER FIREMAN
[2020-06-17 16:17] VITALS: BP 103/56; PULSE 89; RESP 18; TEMP 35.7; O2SAT 100
[2020-06-17 17:36] VITALS: BP 104/69; PULSE 89; RESP 20; TEMP 36.6; O2SAT 99
--- NOTE | 2020-06-17 17:36 | ECG_ITS ---
Measurements Intervals [place] Rate: 93 P: AR: 0 QRS: -52 QRSD: 96 T: 59 QT: 380 QTc: 475 Interpretive Statements SINUS RHYTHM LOW QRS VOLTAGE IN PRECORDIAL LEADS LEFT ANTERIOR FASCICULAR BLOCK ABNORMAL ECG Electronically Signed On 06-17-2020 19:23:03 SEISMOGRAPH OPERATOR HELPER by John Mccloud D.O.
--- NOTE | 2020-06-17 17:37 | PC.NURSE ---
pt to nurses desk c/o mid sternal chest pain. ekg ordered. vital signs checked.
[2020-06-17] MEDS: diphenhydrAMINE HCl INJ 50 MG/ML VIAL 25 MG IV PUSH (18:29)
[2020-06-17] MEDS: METOCLOPRAMIDE HCL INJ 10 MG/2 ML VIAL IV PUSH (18:29)
[2020-06-17 18:38] LABS: Basophils Absolute Auto 0.1 K/mm3 (0.0-0.1); Eosinophils Absolute Auto 0.4 K/mm3 (0-0.3); Eosinophils Percent Auto 3.1 % (0-4.4); Hemoglobin 14.3 g/dL (12.0-15.0); Immature Granulocyte Absolute 0.06 K/mm3 (0.00-0.031); Immature Granulocyte Percent A 0.4 % (0-0.5); Lymphocytes Absolute Auto 6.04 K/mm3 (0.9-3.2); Lymphocytes Percent Auto 44.9 % (18.3-44.2); Mean Corpuscular HGB Conc 34.9 g/dl (32-36); Mean Corpuscular Hemoglobin 28.7 pg (26-34); Mean Corpuscular Volume 82.3 fl (80-100); Mean Platelet Volume 9.8 fl (7.4-10.4); Monocytes Absolute Auto 0.6 K/mm3 (0.1-0.6); Monocytes Percent Auto 4.6 % (2.6-8.5); Neutrophils Absolute Auto 6.2 K/mm3 (1.3-6.7); Platelet Count Result 316 k/mm3 (150-375); Red Blood Count 4.98 M/mm3 (4.2-5.4); Red Cell Distribution Width 12.8 % (11.5-14.5); White Blood Count 13.5 K/mm3 (4.5-10.0)
[2020-06-17 18:48] LABS: INR 0.9; Prothrombin Time 12.3 Seconds (11.1-14.7)
[2020-06-17 18:49] LABS: Partial Thromboplastin Time 37.1 SECONDS (22.3-36.8)
[2020-06-17 19:12] LABS: Anion Gap 5 mmol/L (8-16); Blood Urea Nitrogen 10 mg/dL (7-17); Calcium 8.7 mg/dL (8.4-10.2); Carbon Dioxide 31 mmol/L (22-30); Chloride 101 mmol/L (98-107); Estimated CRCL calculation 75 ml/min; Estimated Glomerular Filt Rate > 60; Glucose 248 mg/dL (65-105); Potassium 4.2 mmol/L (3.4-5.0); Sodium 137 mmol/L (137-145)
[2020-06-17 19:48] LABS: Troponin I < 0.012 ng/mL (0.000-0.034)
[2020-06-17 19:53] VITALS: BP 93/66; PULSE 82; RESP 18; O2SAT 97
--- NOTE | 2020-06-17 21:03 | ED.HA ---
HPI - Headache General Chief Complaint: Headache Stated Complaint: migraines Time Seen by Provider: 06/17/20 17:58 History of Present Illness HPI Narrative: Patient is a 54-year-old female who presents ER with migraine headache. Ongoing for the last 3 days. She has been taking Imitrex without relief. Frontal behind the eyes moves posteriorly. No fevers or chills. She does have some nausea and vomiting. Endorses photophobia and phonophobia. Patient reports earlier today she started having some central chest pain that was nonradiating. Lasted for an unknown amount of time. No previous history of coronary disease. Related Data Home Medications Medication Instructions Recorded Confirmed Basaglar KwikPen U-100 Insulin 34 unit SUBCUT QPM 02/09/20 02/09/20 Victoza 2-Claudio 0.6 mg SUBCUT DAILY 02/09/20 02/09/20 glipizide 10 mg PO DAILY 02/09/20 02/09/20 metformin 500 mg PO BID 02/09/20 02/09/20 olanzapine 10 mg PO DAILY 02/09/20 02/09/20 omeprazole 20 mg PO DAILY 02/09/20 02/09/20 sumatriptan succinate 100 mg PO DAILY PRN 02/09/20 02/09/20 tizanidine 2 mg PO HS 02/09/20 02/09/20 trazodone 200 mg PO HS 02/09/20 02/09/20 vit D3-vit K2-ca fructoborate 1 tablet PO WEEKLY 02/09/20 02/09/20 Allergies Allergy/AdvReac Type Severity Reaction Status Date / Time codeine Allergy Unknown Verified 06/17/20 17:59 fluoxetine [From Prozac] Allergy Unknown Verified 02/09/20 18:39 ketorolac [From Toradol] Allergy Unknown Verified 02/09/20 18:38 steroids Allergy Unknown Uncoded 02/09/20 18:39 Review of Systems Review of Systems: All systems reviewed & are unremarkable except as noted in HPI and below Constitutional: Constitutional: Denies chills, Denies fever(s) and Denies weakness Eyes: Eyes: Denies change in vision and Reports photophobia ENT: Denies nasal congestion and Denies sore throat Neurologic: Denies dizziness, Reports headache(s), Denies focal weakness and Denies numbness PMFSH Past Medical History Medical History Bipolar disorder CVA (cerebral vascular accident) Depression with anxiety Diabetes type 2, controlled Hypothyroidism Migraine Surgical History Surgical History H/O left knee surgery H/O: hysterectomy History of back surgery History of bilateral carpal tunnel release History of cholecystectomy History of neck surgery Previous section Family History Family History Grandparent Acute myocardial infarction Hypertension Diabetes mellitus Father Murder Mother Lung cancer Social History Social History Social History: the patient is and has a fiancee. She has 3 grown children. She is on disability. She denies any alcohol use. She does occasionally smoke marijuana. She still continues to smoke half a pack a cigarettes a day for over 10 years. She recently moved in with her best friend in this area she otherwise she is from [place]. She now has a fiancee. She does not have a durable power of assistant city attorney for health care and desires to be a full code. She denies any illicit drugs but has used marijuana to help with the pain. Smoking packs per day: 0.5 Smoking cigarettes per day: 10.0 Years smoked: 10 Smoking pack-years: 5.00 Smoking status: Current every day smoker Tobacco type: cigarettes Second hand tobacco smoke exposure: No Alcohol intake: never Substance use type: marijuana Gender identity (if verbalized by the patient): Female Spiritual care concerns: No Exam Narrative: Exam Narrative: GENERAL: Well-appearing, well-nourished, and in no acute distress. HEAD: Normocephalic, atraumatic. ENT: Mucous membranes moist. CHEST: Clear to auscultation. No respiratory distress. HEART: Regular rate and rhythm. Normal peripheral pulses. EXTREMITIES: Normal range o
== END 2020-06-17 21:28 | disposition home or self-care (01) ==
PROVIDERS: Emergency Provider Emergency Medicine
DX: G43.909 Migraine, unspecified, not intractable, without status migrainosus (principal); E11.9 Type 2 diabetes mellitus without complications; E03.9 Hypothyroidism, unspecified; Z79.84 Long term (current) use of oral hypoglycemic drugs; F31.9 Bipolar disorder, unspecified; F41.8 Other specified anxiety disorders; Z86.73 Personal history of transient ischemic attack (TIA), and cerebral infarction without residual deficits; F17.210 Nicotine dependence, cigarettes, uncomplicated; I44.4 Left anterior fascicular block
CPT/HCPCS: 36415; 71046; 80048; 84484; 85025; 85610; 85730; 93005; 96365; 96375; 99284; J0131; J1200; J2765

== ENCOUNTER 2020-06-20 12:11 | Outpatient (CLI) | payer OTHER, SELFPAY ==
[2020-06-20 13:02] LABS: Hematocrit 40.7 % (37.0-47.0); Hemoglobin 14.4 g/dL (12.0-15.0); Mean Corpuscular HGB Conc 35.4 g/dl (32-36); Mean Corpuscular Hemoglobin 29.3 pg (26-34); Mean Corpuscular Volume 82.9 fl (80-100); Mean Platelet Volume 9.5 fl (7.4-10.4); Platelet Count Result 301 k/mm3 (150-375); Red Blood Count 4.91 M/mm3 (4.2-5.4); Red Cell Distribution Width 12.8 % (11.5-14.5); White Blood Count 12.3 K/mm3 (4.5-10.0)
[2020-06-20 13:06] LABS: Add Urine Microscopic? YES; Appearance Urine Clear (Clear); Bilirubin Urine Negative (Negative); Blood Urine Negative (Negative); Color Urine Straw (Yellow); Glucose Urine UA 1+ mg/dL (Negative); Ketones Urine Negative (Negative); Leukocyte Esterase Ur Negative LEU/UL (NEGATIVE); Nitrate Urine Negative (Negative); Protein Urine Negative (Negative); RBC Urine 0-2 /hpf (0-2); Specific Grav Ur 1.006 (1.001-1.035); Squamous Epithelial Cell Urine Few /hpf (Few); Urobilinogen Urine Negative mg/dL (<2.0); WBC Urine 0-3 /hpf (0-3)
[2020-06-20 13:12] LABS: Hemoglobin A1C 9.2 % (<5.7)
[2020-06-20 13:14] LABS: Alanine Aminotransferase 26 U/L (4-35); Albumin Level 4.5 g/dL (3.5-5.1); Alkaline Phosphatase 91 U/L (38-126); Anion Gap 5 mmol/L (8-16); Aspartate Amino Transferase 25 U/L (14-36); Bilirubin,Total 0.5 mg/dL (0.2-1.3); Blood Urea Nitrogen 9 mg/dL (7-17); Calcium 9.7 mg/dL (8.4-10.2); Carbon Dioxide 32 mmol/L (22-30); Chloride 102 mmol/L (98-107); Cholesterol 187 mg/dL (0-200); Estimated Glomerular Filt Rate > 60; Glucose 179 mg/dL (65-105); HDL Direct 42 mg/dL; Sodium 139 mmol/L (137-145); Triglycerides 337 mg/dL (<150)
[2020-06-20 13:25] LABS: LDL Cholesterol Direct 98 mg/dL
[2020-06-20 13:47] LABS: Creatinine Urine 16.6 mg/dL
[2020-06-20 13:55] LABS: MALB Creatinine Ratio < 36.1 mg/g (0-30); Microalbumin Urine Random < 6.0 mg/L (0-16.7)
[2020-06-20 14:06] LABS: Vitamin D 25 Hydroxy 40.8 ng/mL
[2020-06-23 07:25] LABS: Triiodothyronine T3 Free 2.4 pg/mL (2.3-4.2)
[2020-06-24 05:30] LABS: Thyroid Peroxidase Antibodies 6442 IU/mL (<9)
== END 2020-06-20 12:12 | disposition home or self-care (01) ==
PROVIDERS: PCP Emergency Medicine; Visit Provider Emergency Medicine
DX: E11.9 Type 2 diabetes mellitus without complications (principal); E03.9 Hypothyroidism, unspecified; Z86.73 Personal history of transient ischemic attack (TIA), and cerebral infarction without residual deficits
CPT/HCPCS: 36415; 80053; 80061; 81001; 82043; 82306; 83036; 84439; 84443; 84481; 85027; 86376

== ENCOUNTER → 2020-06-21 13:17 | Outpatient (CLI) | payer OTHER, SELFPAY ==
[2020-06-21 22:51] LABS: SARS-CoV-2 RNA PCR Negative
== END ==
PROVIDERS: PCP Emergency Medicine; Visit Provider Emergency Medicine
DX: Z20.822 Contact with and (suspected) exposure to COVID-19 (principal)
CPT/HCPCS: C9803; U0003; U0005

== ENCOUNTER 2020-07-01 15:38 | Emergency (ER) | payer OTHER, SELFPAY ==
--- NOTE | ~2020-07-01 | CT_ITS ---
EXAMINATION: CT brain wo [facility] EXAM DATE: 07/01/2020 16:19 INDICATION: Migraine headache. Syncope. TECHNIQUE: Spiral CT of the head was performed without contrast. Axial, coronal and sagittal images were reviewed. The dose-length product (DLP) for this examination was 605.33 mGy-cm. The exposure w as tailored according to patient size, and iterative reconstruction (ASIR) was used as additional dos e reduction technique. Comparison is made to prior examination from 02/09/2020. FINDINGS: There is no acute intraparenchymal hemorrhage. No evidence of intraparenchymal brain mass lesion. No evidence of acute infarction. There is no mass effect or midline shift. The ventricles are normal in size. There are no extra-axial collections. There are no acute calvarial fractures. T he orbits are unremarkable. Soft tissue is unremarkable. The visualized sinuses and mastoid air erika ls are well aerated. IMPRESSION: 1. No acute intracranial findings. Reviewed, dictated and finalized at location B. H MECHANIC
[2020-07-01 15:39] VITALS: BP 126/83; PULSE 74; RESP 12; TEMP 36.6; O2SAT 100
[2020-07-01] MEDS: MORPHINE SULFATE (*CRX) 2 MG/ML INJ IV PUSH (17:17)
[2020-07-01] MEDS: SODIUM CHLORIDE 0.9% IV 1,000 ML 999 ML IV CONT (17:17)
[2020-07-01] MEDS: METOCLOPRAMIDE HCL INJ 10 MG/2 ML VIAL IV PUSH (17:18)
[2020-07-01 17:19] VITALS: BP 110/74; PULSE 72; RESP 18; O2SAT 99
[2020-07-01 17:27] LABS: Basophils Absolute Auto 0.1 K/mm3 (0.0-0.1); Basophils Percent Auto 0.8 % (0.2-1.2); Eosinophils Absolute Auto 0.4 K/mm3 (0-0.3); Hematocrit 39.7 % (37.0-47.0); Hemoglobin 13.8 g/dL (12.0-15.0); Immature Granulocyte Absolute 0.02 K/mm3 (0.00-0.031); Immature Granulocyte Percent A 0.2 % (0-0.5); Lymphocytes Absolute Auto 5.31 K/mm3 (0.9-3.2); Lymphocytes Percent Auto 44.8 % (18.3-44.2); Mean Corpuscular HGB Conc 34.8 g/dl (32-36); Mean Corpuscular Hemoglobin 28.9 pg (26-34); Mean Corpuscular Volume 83.2 fl (80-100); Mean Platelet Volume 9.2 fl (7.4-10.4); Monocytes Absolute Auto 0.5 K/mm3 (0.1-0.6); Monocytes Percent Auto 4.1 % (2.6-8.5); Neutrophils Absolute Auto 5.6 K/mm3 (1.3-6.7); Neutrophils Percent Auto 47.1 % (45.5-73.1); Platelet Count Result 292 k/mm3 (150-375); Red Blood Count 4.77 M/mm3 (4.2-5.4); White Blood Count 11.9 K/mm3 (4.5-10.0)
[2020-07-01 17:30] LABS: Add Urine Microscopic? NO; Appearance Urine Clear (Clear); Bilirubin Urine Negative (Negative); Blood Urine Negative (Negative); Color Urine Yellow (Yellow); Glucose Urine UA Negative (Negative); Ketones Urine Negative (Negative); Leukocyte Esterase Ur Negative LEU/UL (Negative); Nitrate Urine Negative (Negative); Protein Urine Negative (Negative); Urobilinogen Urine Negative mg/dL (<2.0)
--- NOTE | 2020-07-01 17:44 | ECG_ITS ---
Measurements Intervals [place] Rate: 72 P: 45 CO: 195 QRS: -23 QRSD: 104 T: 48 QT: 424 QTc: 464 Interpretive Statements SINUS RHYTHM BASELINE ARTIFACT- V4 NORMAL ECG Electronically Signed On 07-01-2020 20:09:17 INTERNET DEVELOPER by John Mccloud D.O.
[2020-07-01 17:47] LABS: Alanine Aminotransferase 23 U/L (4-35); Albumin Level 4.5 g/dL (3.5-5.1); Alkaline Phosphatase 81 U/L (38-126); Anion Gap 2 mmol/L (8-16); Aspartate Amino Transferase 25 U/L (14-36); Bilirubin,Total 0.4 mg/dL (0.2-1.3); Blood Urea Nitrogen 8 mg/dL (7-17); Calcium 9.2 mg/dL (8.4-10.2); Carbon Dioxide 37 mmol/L (22-30); Chloride 103 mmol/L (98-107); Estimated Glomerular Filt Rate > 60; Glucose 99 mg/dL (65-105); Potassium 3.9 mmol/L (3.4-5.0); Sodium 142 mmol/L (137-145)
[2020-07-01 17:53] LABS: Amphetamine Screen Urine Negative (Negative); Barbiturate Screen Urine Negative (Negative); Benzodiazepines Screen Urine Negative (Negative); Cannabinoid Screen Urine Negative (Negative); Cocaine Screen Urine Negative (Negative); Methadone Screen Urine Negative (Negative); Opiate Screen Urine Negative (Negative); Phencyclidine Screen Urine Negative (Negative)
--- NOTE | 2020-07-01 18:08 | ED.GENADULT ---
HPI - General Adult General Chief complaint: Headache Stated complaint: HEADACHE Time Seen by Provider: 07/01/20 15:42 Source: patient Mode of arrival: ambulatory Limitations: no limitations History of Present Illness HPI narrative: Patient with history of migraines presents with chief complaint of frontal headache greater on the right than the left that began today. Patient states that she has been in contact with her primary care Dr. Potter and informed him that her migraine medications have not been aborting her migraines. She has been to the emergency department approximately every 2 weeks for the past month or 2. She states that she believes she had a syncopal episode earlier today and called her primary care and was told to come to the emergency department. She denies head impact. She reports photophobia and nausea and a few episodes of vomiting. She states all symptoms generally accompany her migraines. Patient denies any fever, chills, cough, shortness of breath, chest pain, abdominal pain, neck pain, unilateral weakness or speech deficits or any other symptoms. Related Data Home Medications Medication Instructions Recorded Confirmed Tanya BecerraPen U-100 Insulin 34 unit SUBCUT QPM 02/09/20 02/09/20 Victoza 2-Claudio 0.6 mg SUBCUT DAILY 02/09/20 02/09/20 glipizide 10 mg PO DAILY 02/09/20 02/09/20 metformin 500 mg PO BID 02/09/20 02/09/20 olanzapine 10 mg PO DAILY 02/09/20 02/09/20 omeprazole 20 mg PO DAILY 02/09/20 02/09/20 sumatriptan succinate 100 mg PO DAILY PRN 02/09/20 02/09/20 tizanidine 2 mg PO HS 02/09/20 02/09/20 trazodone 200 mg PO HS 02/09/20 02/09/20 vit D3-vit K2-ca fructoborate 1 tablet PO WEEKLY 02/09/20 02/09/20 Allergies Allergy/AdvReac Type Severity Reaction Status Date / Time codeine Allergy Unknown Verified 07/01/20 15:47 fluoxetine [From Prozac] Allergy Unknown Verified 07/01/20 15:47 ketorolac [From Toradol] Allergy Unknown Verified 07/01/20 15:47 steroids Allergy Unknown Uncoded 02/09/20 18:39 Review of Systems Review of Systems: Narrative: CONSTITUTIONAL: Denies fever, chills, or sweats. EYES: Denies visual changes, redness, or discharge. ENT: Denies rhinorrhea, congestion, sore throat, or otalgia. CARDIOVASCULAR: Denies chest pain, palpitations, or edema. RESPIRATORY: Denies cough or dyspnea. GASTROINTESTINAL: Denies abdominal pain, nausea, vomiting, or diarrhea. GENITOURINARY: Denies dysuria or hematuria. SKIN: Denies rash or itching. MUSCULOSKELETAL: Denies back pain, joint pain, or myalgia. NEUROLOGIC: Reports headache and possible syncopal episode denies numbness, dizziness, or weakness. PSYCHIATRIC: Denies anxiety or depression. [facility] Past Medical History Medical History Bipolar disorder CVA (cerebral vascular accident) Depression with anxiety Diabetes type 2, controlled Hypothyroidism Migraine Surgical History Surgical History H/O left knee surgery H/O: hysterectomy History of back surgery History of bilateral carpal tunnel release History of cholecystectomy History of neck surgery Previous section Family History Family History Grandparent Acute myocardial infarction Hypertension Diabetes mellitus Father Murder Mother Lung cancer Social History Social History Social History: the patient is and has a fiancee. She has 3 grown children. She is on disability. She denies any alcohol use. She does occasionally smoke marijuana. She still continues to smoke half a pack a cigarettes a day for over 10 years. She recently moved in with her best friend in this area she otherwise she is from [place]. She now has a fiancee. She does not have a durable power of sports attorney for health care and desires to be a full code. She denies any illicit drugs but has used mar
== END 2020-07-01 20:07 | disposition home or self-care (01) ==
PROVIDERS: Physician Assistant; Emergency Provider Emergency Medicine; PCP Emergency Medicine
DX: G43.909 Migraine, unspecified, not intractable, without status migrainosus (principal); E11.9 Type 2 diabetes mellitus without complications; Z86.73 Personal history of transient ischemic attack (TIA), and cerebral infarction without residual deficits; E03.9 Hypothyroidism, unspecified; F31.9 Bipolar disorder, unspecified; F41.9 Anxiety disorder, unspecified; F17.210 Nicotine dependence, cigarettes, uncomplicated; Z79.84 Long term (current) use of oral hypoglycemic drugs
CPT/HCPCS: 36415; 70450; 80053; 80307; 81003; 85025; 93005; 96361; 96374; 96375; 99284; J2270; J2765; J7030

== ENCOUNTER 2020-07-08 17:46 | Emergency (ER) | payer OTHER, SELFPAY ==
[2020-07-08 17:57] VITALS: BP 117/63; PULSE 95; RESP 20; TEMP 36.5; O2SAT 99
--- NOTE | 2020-07-08 18:12 | ED.GENADULT ---
HPI - General Adult General Chief complaint: Unspecified Stated complaint: covid vaccine, shaking Time Seen by Provider: 07/08/20 17:58 Source: patient and family Mode of arrival: ambulatory Limitations: no limitations History of Present Illness HPI narrative: Patient is a 54-year-old female who presents with chills and body aches after receiving her COVID-19 vaccine this morning began after receiving the vaccine around 10 AM this morning patient's is also being seen in the emergency department with similar symptoms patient on arrival does not appear distressed or uncomfortable has not taken anything for her symptoms denies any chest pain shortness of breath vomiting diarrhea has not taken anything for her symptoms Related Data Home Medications Medication Instructions Recorded Confirmed Basaglar KwikPen U-100 Insulin 34 unit SUBCUT QPM 02/09/20 02/09/20 Victoza 2-Claudio 0.6 mg SUBCUT DAILY 02/09/20 02/09/20 glipizide 10 mg PO DAILY 02/09/20 02/09/20 metformin 500 mg PO BID 02/09/20 02/09/20 olanzapine 10 mg PO DAILY 02/09/20 02/09/20 omeprazole 20 mg PO DAILY 02/09/20 02/09/20 sumatriptan succinate 100 mg PO DAILY PRN 02/09/20 02/09/20 tizanidine 2 mg PO HS 02/09/20 02/09/20 trazodone 200 mg PO HS 02/09/20 02/09/20 vit D3-vit K2-ca fructoborate 1 tablet PO WEEKLY 02/09/20 02/09/20 Allergies Allergy/AdvReac Type Severity Reaction Status Date / Time codeine Allergy Unknown Verified 07/08/20 18:01 fluoxetine [From Prozac] Allergy Unknown Verified 07/08/20 18:01 ketorolac [From Toradol] Allergy Unknown Verified 07/08/20 18:01 steroids Allergy Unknown Uncoded 07/08/20 18:01 Review of Systems Review of Systems: All systems reviewed & are unremarkable except as noted in HPI and below PMFSH Past Medical History Medical History Bipolar disorder CVA (cerebral vascular accident) Depression with anxiety Diabetes type 2, controlled Hypothyroidism Migraine Surgical History Surgical History H/O left knee surgery H/O: hysterectomy History of back surgery History of bilateral carpal tunnel release History of cholecystectomy History of neck surgery Previous section Family History Family History Grandparent Acute myocardial infarction Hypertension Diabetes mellitus Father Murder Mother Lung cancer Social History Social History Social History: the patient is and has a fiancee. She has 3 grown children. She is on disability. She denies any alcohol use. She does occasionally smoke marijuana. She still continues to smoke half a pack a cigarettes a day for over 10 years. She recently moved in with her best friend in this area she otherwise she is from [place]. She now has a fiancee. She does not have a durable power of shake splitter for health care and desires to be a full code. She denies any illicit drugs but has used marijuana to help with the pain. Smoking packs per day: 0.5 Smoking cigarettes per day: 10.0 Years smoked: 10 Smoking pack-years: 5.00 Smoking status: Current every day smoker Tobacco type: cigarettes Second hand tobacco smoke exposure: No Alcohol intake: never Substance use type: marijuana Gender identity (if verbalized by the patient): Male Spiritual care concerns: No Exam Narrative: Exam Narrative: GENERAL: Well-appearing, well-nourished, and in no acute distress. HEAD: Normocephalic, atraumatic. EYES: PERRLA and EOMI. ENT: Nares clear, no rhinorrhea or epistaxis. Mucous membranes moist. CHEST: Clear to auscultation. No respiratory distress. No wheezes rales or rhonchi HEART: Regular rate and rhythm. No murmur heard. EXTREMITIES: Normal range of motion. No edema. SKIN: Warm, dry, no rash. NEURO: No focal deficits. Alert
[2020-07-08] MEDS: ACETAMINOPHEN 325 MG TABLET 650 MG PO (18:19)
[2020-07-08] MEDS: FAMOTIDINE 20 MG TABLET PO (18:19)
== END 2020-07-08 18:38 | disposition home or self-care (01) ==
LOC: ANHED 18:22
PROVIDERS: Emergency Provider Emergency Medicine; PCP Emergency Medicine
DX: R68.83 Chills (without fever) (principal); T50.B95A Adverse effect of other viral vaccines, initial encounter; F31.9 Bipolar disorder, unspecified; F41.8 Other specified anxiety disorders; E11.9 Type 2 diabetes mellitus without complications; E03.9 Hypothyroidism, unspecified; F17.210 Nicotine dependence, cigarettes, uncomplicated; Z86.73 Personal history of transient ischemic attack (TIA), and cerebral infarction without residual deficits
CPT/HCPCS: 99283; A9270

== ENCOUNTER 2021-02-23 20:55 | Inpatient (IN) | payer OTHER, SELFPAY ==
--- NOTE | ~2021-02-23 | XR_ITS ---
EXAMINATION: XR chest 1V portable DATE: 02/25/2021 05:44 INDICATION: Leukocytosis TECHNIQUE: frontal view of the chest was obtained. COMPARISON: Chest radiograph dated 06/17/2020 FINDINGS: Calcified nodules in the right upper lung zone consistent with old granulomatous disease. Lungs remai n otherwise clear with no other airspace opacities, pulmonary edema, pleural effusion or pneumothorax . The cardiomediastinal silhouette is normal. Postoperative changes in the neck with several surgical clips as well as plate and screw fixation for lower cervical anterior spinal fusion. IMPRESSION: 1. No acute cardiopulmonary disease. Reviewed, dictated and finalized at location A.
--- NOTE | ~2021-02-23 | CT_ITS ---
EXAMINATION: CT abdomen pelvis w con INDICATION: Diarrhea TECHNIQUE: Computed tomographic images of the abdomen and pelvis were obtained after the administrati on of 100 cc of Omnipaque 350 intravenous contrast. The dose-length product (DLP) was 884.37 mGy-cm. Automated exposure control and iterative reconstruction technique were employed. COMPARISON: None available FINDINGS: Minimal dependent atelectasis is present in the lung bases. The heart size is normal. Calci fied coronary artery atherosclerosis is noted. The gallbladder is surgically absent. There is mild en largement of the common bile duct and central intrahepatic ducts which is likely due to post cholecys tectomy state. Punctate calcifications in otherwise normal appearing liver and spleen likely represen t healed granulomatous disease. The pancreas and adrenal glands are normal. The kidneys are unremarka ble. No pathologically enlarged abdominal or pelvic lymph nodes are identified. There is calcified at herosclerosis of the aorta and many of the other arteries. There is no free intraperitoneal gas or ev idence of bowel obstruction. The appendix is normal. There is mild lumbar spondylosis. There is a fa t-containing umbilical hernia. Small hyperdense foci in the cecum could reflect ingested medications. IMPRESSION: 1. No CT correlate for the patient's symptoms. Hyperattenuating foci in the cecum could reflect inges clint medications. Reviewed, dictated and finalized at location B. IMPRESSION: 1. No CT correlate for the patient's symptoms. Hyperattenuating foci in the cec um could reflect ingested medications.
[2021-02-23 20:57] VITALS: BP 123/98; PULSE 94; RESP 20; TEMP 36.7; O2SAT 98
[2021-02-23 21:13] LABS: Basophils Absolute Auto 0.1 K/mm3 (0.0-0.1); Basophils Percent Auto 0.8 % (0.2-1.2); Eosinophils Absolute Auto 0.5 K/mm3 (0-0.3); Eosinophils Percent Auto 4.3 % (0-4.4); Hematocrit 34.3 % (37.0-47.0); Hemoglobin 11.5 g/dL (12.0-15.0); Immature Granulocyte Absolute 0.05 K/mm3 (0.00-0.031); Immature Granulocyte Percent A 0.4 % (0-0.5); Lymphocytes Absolute Auto 4.34 K/mm3 (0.9-3.2); Lymphocytes Percent Auto 38.5 % (18.3-44.2); Mean Corpuscular HGB Conc 33.5 g/dl (32-36); Mean Corpuscular Hemoglobin 28.8 pg (26-34); Mean Corpuscular Volume 85.8 fl (80-100); Mean Platelet Volume 8.7 fl (7.4-10.4); Monocytes Absolute Auto 0.7 K/mm3 (0.1-0.6); Monocytes Percent Auto 6.2 % (2.6-8.5); Neutrophils Absolute Auto 5.6 K/mm3 (1.3-6.7); Neutrophils Percent Auto 49.8 % (45.5-73.1); Platelet Count Result 283 k/mm3 (150-375); Red Cell Distribution Width 14.3 % (11.5-14.5); White Blood Count 11.3 K/mm3 (4.5-10.0)
[2021-02-23 21:14] LABS: Glucose Point of Care 129 mg/dl (65-105)
[2021-02-23 21:31] LABS: Anion Gap 9 mmol/L (8-16); Blood Urea Nitrogen 10 mg/dL (7-17); Calcium 8.7 mg/dL (8.4-10.2); Carbon Dioxide 20 mmol/L (22-30); Chloride 111 mmol/L (98-107); Estimated CRCL calculation 87 ml/min; Estimated Glomerular Filt Rate > 60; Glucose 128 mg/dL (65-110); Potassium 3.6 mmol/L (3.4-5.0); Sodium 140 mmol/L (137-145)
[2021-02-23 22:09] LABS: Add Urine Microscopic? NO; Appearance Urine Clear (Clear); Bilirubin Urine Negative (Negative); Blood Urine Negative (Negative); Color Urine Straw (Yellow); Glucose Urine UA Negative (Negative); Ketones Urine Negative (Negative); Leukocyte Esterase Ur Negative LEU/UL (Negative); Nitrate Urine Negative (Negative); Protein Urine Negative (Negative); Specific Grav Ur 1.006 (1.001-1.035); Urobilinogen Urine Negative mg/dL (<2.0)
--- NOTE | 2021-02-23 22:17 | ED.RECABL ---
HPI - Recheck/Abnormal Lab/Rx General Chief Complaint: Recheck/Abnormal Lab/Rx Stated Complaint: hypoglycemia Time Seen by Provider: 02/23/21 20:56 History of Present Illness HPI narrative: 55-year-old female complains of 3-week history of diarrhea nonbloody no dark stool or tarry stool. Happens mostly after she eats. No vomiting, no fever, no decreased appetite. Tolerating p.o. last had ravioli prior to arrival. Patient also states that she has been checking her blood sugars and they have been low in the afternoon but fine in the morning. She states she has not yet talked to her doctor about this but will be seeing him tomorrow. Patient states she had a low reading prior to arrival felt funny and called EMS then she ate and her sugars were 128 on arrival. Patient is alert and oriented x3 nondiaphoretic, no chest pain no shortness of breath no abdominal pain. No focal neuro deficits Related Data Home Medications Medication Instructions Recorded Confirmed Basaglar KwikPen U-100 Insulin 34 unit SUBCUT QPM 02/09/20 02/09/20 Victoza 2-Claudio 0.6 mg SUBCUT DAILY 02/09/20 02/09/20 glipizide 10 mg PO DAILY 02/09/20 02/09/20 omeprazole 20 mg PO DAILY 02/09/20 02/09/20 sumatriptan succinate 100 mg PO DAILY PRN 02/09/20 02/09/20 tizanidine 2 mg PO HS 02/09/20 02/09/20 trazodone 200 mg PO HS 02/09/20 02/09/20 vit D3-vit K2-ca fructoborate 1 tablet PO WEEKLY 02/09/20 02/09/20 sertraline 200 mg PO DAILY 02/23/21 Allergies Allergy/AdvReac Type Severity Reaction Status Date / Time codeine Allergy Unknown Verified 02/23/21 21:06 fluoxetine [From Prozac] Allergy Unknown Verified 02/23/21 21:06 ketorolac [From Toradol] Allergy Unknown Verified 02/23/21 21:06 steroids Allergy Unknown Uncoded 02/23/21 21:06 Review of Systems Review of Systems: CONSTITUTIONAL: no fever, no weight loss, no confusion EYES: no vision changes, no eye pain ENT: no rhinorrhea, no sore throat, no difficulty swallowing CARDIOVASCULAR: no chest pain, no leg edema, no palpitations RESPIRATORY: no cough, no shortness of breath, no hemoptysis GASTROINTESTINAL: no abdominal pain, no nausea, no vomiting, positive for diarrhea, no melena, no dark tarry stool GENITOURINARY: no flank pain, no dysuria, no hematuria SKIN: no rash, no jaundice MUSCULOSKELETAL: no back pain, no trauma. NEUROLOGIC: No headache, no dizziness, no focal weakness PSYCHIATRIC: No hallucinations, no suicidal ideation [facility] Past Medical History Medical History Bipolar disorder CVA (cerebral vascular accident) Depression with anxiety Diabetes type 2, controlled Hypothyroidism Migraine Surgical History Surgical History H/O left knee surgery H/O: hysterectomy History of back surgery History of bilateral carpal tunnel release History of cholecystectomy History of neck surgery Previous section Family History Family History Grandparent Acute myocardial infarction Hypertension Diabetes mellitus Father Murder Mother Lung cancer Social History Social History Social History: the patient is and has a fiancee. She has 3 grown children. She is on disability. She denies any alcohol use. She does occasionally smoke marijuana. She still continues to smoke half a pack a cigarettes a day for over 10 years. She recently moved in with her best friend in this area she otherwise she is from [place]. She now has a fiancee. 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 She denies any illicit drugs but has used marijuana to help with the pain. Smoking packs per day: 0.5 Smoking cigarettes per day: 10.0 Years smoked: 10 Smoking pack-years: 5.00 Smoking status: Current every day smoker Tobacco type: cigarettes
[2021-02-23 22:27] LABS: Glucose Point of Care 53 mg/dl (65-105)
[2021-02-23 22:28] LABS: Glucose Point of Care 45 mg/dl (65-105)
[2021-02-23 22:28] LABS: Glucose Point of Care 46 mg/dl (65-105)
--- NOTE | 2021-02-23 22:31 | PC.NURSE ---
Pt recheck blood sugar 54, then 46. given apple juice and turkey sandwich. a/o x 4. pt takes insulin but also takes glipizide.
--- NOTE | 2021-02-23 23:16 | PM.IMHP ---
H&P: HPI History of Present Illness Date/Time: 02/23/21 23:16 Chief Complaint: Hypoglycemia Narrative: This is a 55-year-old female with past medical history significant for type 2 diabetes mellitus insulin dependent, gastroesophageal reflux disease, depression, migraine headache, dyslipidemia, tobacco dependence patient smokes a half to 1 pack of cigarettes daily.. Patient presented to the emergency room via EMS due to hypoglycemic episode she has had diarrhea now for 3 weeks, no phlegm or blood, is mostly watery diarrhea, no fevers ,no rigors, no chills, no abdominal pain, no nausea, no vomiting, no cough, no sputum production, no shortness of breath, no leg swelling. Multiple rechecks in the emergency room showed blood sugars in the 40s and 50s she has been placed on D10. Preliminary workup has been essentially nonrevealing. Patient is been placed in observation. Review of Systems Review of Systems: Hypoglycemia watery diarrhea for 3 weeks Constitutional: Constitutional: Denies chills, Denies fatigue, Denies fever(s), Denies lethargy, Denies malaise, Denies night sweats, Denies poor appetite and Denies weakness Eyes: Eyes: Denies change in vision, Denies diplopia, Denies floaters, Denies loss of vision, Denies other visual disturbances, Denies seeing flashes and Denies spots in vision ENT: Denies dysphagia, Denies vertigo, Denies dizziness, Denies nasal congestion, Denies nasal discharge, Denies nasal obstruction and Denies odynophagia Cardiovascular: Cardiovascular: Denies pedal edema, Denies edema, Denies irregular heart rhythm, Denies claudication, Denies leg edema, Denies lightheadedness, Denies radiating jaw, neck or arm pain, Denies palpitations, Denies dyspnea, Denies dyspnea on exertion and Denies orthopnea Respiratory: Respiratory: Denies change in phlegm color, Denies cough, Denies excessive phlegm production, Denies dyspnea and Denies wheezing Gastrointestinal: Gastrointestinal: Denies abdominal pain, Denies dyspepsia, Denies heartburn, Reports diarrhea, Denies nausea and Denies vomiting Genitourinary: Genitourinary: Denies dysuria and Denies flank pain Musculoskeletal: Musculoskeletal: Denies arthralgias, Denies joint swelling and Denies muscle weakness Integumentary/Breasts: Skin/Breast: Denies rash Neurologic: Denies syncope, Denies focal weakness, Denies Sensory deficit (Neuro) and Denies paresthesias Psychiatric: Psychiatric: Reports no additional psychiatric complaints and Reports as per HPI Endocrine: Comments: Hypoglycemic episodes Hematologic/Lymphatic: Hematologic/Lymphatic: Reports no additional hematologic/lymphatic complaints and Reports as per HPI Allergic/Immunologic: Allergic/Immunologic: Reports no additional allergic/immunologic complaints and Reports as per HPI [facility] Past Medical History Medical History Bipolar disorder CVA (cerebral vascular accident) Depression with anxiety Diabetes type 2, controlled Hypothyroidism Migraine Surgical History Surgical History H/O left knee surgery H/O: hysterectomy History of back surgery History of bilateral carpal tunnel release History of cholecystectomy History of neck surgery Previous section Family History Family History Grandparent Acute myocardial infarction Hypertension Diabetes mellitus Father Murder Mother Lung cancer Social History Social History Social History: the patient is and has a fiancee. She has 3 grown children. She is on disability. She denies any alcohol use. She does occasionally smoke marijuana. She still continues to smoke half a pack a cigarettes a day for over 10 years. She recently moved in with her best friend in this area she otherwise she is from [place]. She now has a fiancee.
[2021-02-23 23:25] LABS: Glucose Point of Care 62 mg/dl (65-105)
--- NOTE | 2021-02-23 23:25 | PC.NURSE ---
Accucheck 62. ED MD notified. will start D10 infusion as ordered.
[2021-02-23] MEDS: DEXTROSE 10% 500 ML 10 ML IV CONT (23:34)
[2021-02-23 23:38] VITALS: BP 104/65; PULSE 81; RESP 18; O2SAT 100
[2021-02-24] VITALS (9 sets, daily range): BP systolic 100–122; BP diastolic 56–76; PULSE 78–87; RESP 14–18; TEMP 36.2–36.7; O2SAT 98–100; BMI 26.9
[2021-02-24 00:18] LABS: Glucose Point of Care 74 mg/dl (65-105)
[2021-02-24 03:32] LABS: Glucose Point of Care 63 mg/dl (65-105)
[2021-02-24 03:32] LABS: Glucose Point of Care 69 mg/dl (65-105)
--- NOTE | 2021-02-24 05:32 | ADMGEN ---
This patient, Kathi Minaya, was admitted to [facility] Surg Room 329-01. Patient/family oriented to hospital policies and general routines including ID bracelet, bed and alarms, visiting hours, pain management, procedures, bathroom and other care routines, personal items, smoking policy, room service/diet, and visiting hours. Information on how to activate the Rapid Response Team has been discussed. Patient/Family are encouraged to report perceived risks to care and to ask questions if they do not understand what they are told or what they should do.
[2021-02-24] MEDS: LEVOTHYROXINE SODIUM 150 MCG TABLET PO (06:36)
[2021-02-24 06:53] LABS: Glucose Point of Care 83 mg/dl (65-105)
[2021-02-24 06:53] LABS: Glucose Point of Care 85 mg/dl (65-105)
[2021-02-24 08:01] LABS: Glucose Point of Care 68 mg/dl (65-105)
[2021-02-24 09:46] LABS: Glucose Point of Care 87 mg/dl (65-105)
--- NOTE | 2021-02-24 11:15 | P.PNIM_ITS ---
Progress Note: A&P Assessment and Plan (1) Hypoglycemia associated with diabetes: Code(s): E11.649 - Type 2 diabetes mellitus with hypoglycemia without coma Status: Acute Assessment and Plan: * Glucose has been running in the 60 this shift * She did state that she has self reduced her own medications. * Probably secondary to the fact that she has been having diarrhea and has been still taking higher regimen of insulin and glipizide and Victoza * Will be holding insulin glipizide and Victoza * Trend blood sugars. * adjust medications as needed (2) Tobacco abuse: Code(s): Z72.0 - Tobacco use Status: Acute Assessment and Plan: * Nicotine patch as needed (3) Hypercholesteremia: Code(s): E78.00 - Pure hypercholesterolemia, unspecified Status: Acute Assessment and Plan: * Continue statin (4) Type 2 diabetes mellitus: Qualifiers: Diabetes mellitus [place] [facility] insulin use: with manager intermediate use Code(s): E11.9 - Type 2 diabetes mellitus without complications Status: Acute Assessment and Plan: * 1800 calorie diet carb consistent * See above (5) Depression with anxiety: Code(s): F41.8 - Other specified anxiety disorders Status: Chronic Assessment and Plan: * Continue trazodone, continue sertraline. * Continue to monitor (6) Bipolar disorder: Code(s): F31.9 - Bipolar disorder, unspecified Status: Chronic Assessment and Plan: * On trazodone and sertraline (7) Migraine: Qualifiers: Intractability: not intractable Migraine type: unspecified Status migrainosus presence: without status migrainosus Qualified Code(s): G43.909 - Migraine, unspecified, not intractable, without status migrainosus Code(s): G43.909 - Migraine, unspecified, not intractable, without status migrainosus Status: Chronic Assessment and Plan: * Continue sumatriptan as need (8) Diarrhea: Code(s): R19.7 - Diarrhea, unspecified Status: Acute Assessment and Plan: * Reports diarrhea for three weeks * Stool cultures pending * GI consulted thank you (9) Leukocytosis: Code(s): D72.829 - Elevated white blood cell count, unspecified Status: Acute Assessment and Plan: * WBCs are slightly elevated * Chart review kind of reveals a trend of very very mild elevated WBC * Continue to trend * ABD ct did not show any acute problems * Chest xray in the am Time Spent With Patient Time with patient: Greater than 35 minutes Subjective Date/time seen: 02/24/21 11:15 Interval history: Date/Time: 02/23/21 23:16 Narrative: This is a 55-year-old female with past medical history significant for type 2 diabetes mellitus insulin dependent, gastroesophageal reflux disease, depression, migraine headache, dyslipidemia, tobacco dependence patient smokes a half to 1 pack of cigarettes daily.. Patient presented to the emergency room via EMS due to hypoglycemic episode she has had diarrhea now for 3 weeks, no phlegm or blood, is mostly watery diarrhea, no fevers ,no rigors, no chills, no abdominal pain, no nausea, no vomiting, no cough, no sputum production, no shortness of breath, no leg swelling. Multiple rechecks in the emergency room showed blood sugars in the 40s and 50s she has been pl
--- NOTE | 2021-02-24 11:15 | PM.IMPN ---
Progress Note: A&P Assessment and Plan (1) Hypoglycemia associated with diabetes: Code(s): E11.649 - Type 2 diabetes mellitus with hypoglycemia without coma Status: Acute Assessment and Plan: Glucose has been running in the 60 this shift She did state that she has self reduced her own medications. Probably secondary to the fact that she has been having diarrhea and has been still taking higher regimen of insulin and glipizide and Victoza Will be holding insulin glipizide and Victoza Trend blood sugars. 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 Continue to monitor (6) Bipolar disorder: Code(s): F31.9 - Bipolar disorder, unspecified Status: Chronic Assessment and Plan: On trazodone and sertraline (7) Migraine: Qualifiers: Intractability: not intractable Migraine type: unspecified Status migrainosus presence: without status migrainosus Qualified Code(s): G43.909 - Migraine, unspecified, not intractable, without status migrainosus Code(s): G43.909 - Migraine, unspecified, not intractable, without status migrainosus Status: Chronic Assessment and Plan: Continue sumatriptan as need (8) Diarrhea: Code(s): R19.7 - Diarrhea, unspecified Status: Acute Assessment and Plan: Reports diarrhea for three weeks Stool cultures pending GI consulted thank you (9) Leukocytosis: Code(s): D72.829 - Elevated white blood cell count, unspecified Status: Acute Assessment and Plan: WBCs are slightly elevated Chart review kind of reveals a trend of very very mild elevated WBC Continue to trend ABD ct did not show any acute problems Chest xray in the am Time Spent With Patient Time with patient: Greater than 35 minutes Subjective Date/time seen: 02/24/21 11:15 Interval history: Date/Time: 02/23/21 23:16 Narrative: This is a 55-year-old female with past medical history significant for type 2 diabetes mellitus insulin dependent, gastroesophageal reflux disease, depression, migraine headache, dyslipidemia, tobacco dependence patient smokes a half to 1 pack of cigarettes daily.. Patient presented to the emergency room via EMS due to hypoglycemic episode she has had diarrhea now for 3 weeks, no phlegm or blood, is mostly watery diarrhea, no fevers ,no rigors, no chills, no abdominal pain, no nausea, no vomiting, no cough, no sputum production, no shortness of breath, no leg swelling. Multiple rechecks in the emergency room showed blood sugars in the 40s and 50s she has been placed on D10. Preliminary workup has been essentially nonrevealing. Patient is been placed in observation. Date/Time: 02/24/21 11:15 Patient was very concerned when I went into see her about the diarrhea. She did not talk about anything else. She told me that she has had this diarrhea for the last three weeks. She stated that she used to be on Metformin, however, she was take off of that about 3 weeks ago for the same concerns of diarrhea. She explained that she has used Imodium which did not seem to help her. She also stated that the most concer
[2021-02-24 12:06] LABS: Glucose Point of Care 74 mg/dl (65-105)
[2021-02-24] MEDS: PANTOPRAZOLE 40 MG TABLET PO (12:48)
[2021-02-24] MEDS: ATORVASTATIN 40 MG TABLET PO (12:48)
[2021-02-24] MEDS: SERTRALINE HCL 50 MG TABLET 200 MG PO (12:48)
[2021-02-24] MEDS: ACETAMINOPHEN 500 MG TABLET 1000 MG PO (16:07)
[2021-02-24] MEDS: ENOXAPARIN 40 MG/0.4 ML SYRINGE SUB-Q (16:36)
[2021-02-24 17:06] LABS: Glucose Point of Care 98 mg/dl (65-105)
[2021-02-24] MEDS: traZODone HCL 50 MG TABLET 200 MG PO (20:16)
[2021-02-24] MEDS: TIZANIDINE HCL 2 MG TABLET PO (20:17)
[2021-02-24] MEDS: DEXTROSE 10% 500 ML 75 ML IV CONT (20:25)
[2021-02-24 20:38] LABS: Glucose Point of Care 138 mg/dl (65-105)
[2021-02-25 04:38] LABS: Glucose Point of Care 142 mg/dl (65-105)
[2021-02-25] MEDS: LEVOTHYROXINE SODIUM 150 MCG TABLET PO (05:46)
[2021-02-25 05:47] VITALS: BP 100/56; PULSE 83; RESP 18; TEMP 36.8; O2SAT 99
[2021-02-25] MEDS: ACETAMINOPHEN 500 MG TABLET 1000 MG PO ×2 (05:51→11:21)
[2021-02-25 06:02] LABS: Basophils Absolute Auto 0.1 K/mm3 (0.0-0.1); Basophils Percent Auto 0.7 % (0.2-1.2); Eosinophils Absolute Auto 0.5 K/mm3 (0-0.3); Eosinophils Percent Auto 4.9 % (0-4.4); Hematocrit 34.4 % (37.0-47.0); Hemoglobin 11.4 g/dL (12.0-15.0); Immature Granulocyte Absolute 0.03 K/mm3 (0.00-0.031); Immature Granulocyte Percent A 0.3 % (0-0.5); Lymphocytes Absolute Auto 3.43 K/mm3 (0.9-3.2); Mean Corpuscular HGB Conc 33.1 g/dl (32-36); Mean Corpuscular Hemoglobin 28.4 pg (26-34); Mean Corpuscular Volume 85.6 fl (80-100); Mean Platelet Volume 8.9 fl (7.4-10.4); Monocytes Absolute Auto 0.6 K/mm3 (0.1-0.6); Monocytes Percent Auto 6.2 % (2.6-8.5); Neutrophils Absolute Auto 5.7 K/mm3 (1.3-6.7); Neutrophils Percent Auto 54.9 % (45.5-73.1); Platelet Count Result 280 k/mm3 (150-375); Red Blood Count 4.02 M/mm3 (4.2-5.4); Red Cell Distribution Width 13.7 % (11.5-14.5); White Blood Count 10.4 K/mm3 (4.5-10.0)
[2021-02-25 06:13] LABS: Alanine Aminotransferase 13 U/L (4-35); Albumin Level 3.7 g/dL (3.5-5.1); Alkaline Phosphatase 66 U/L (38-126); Anion Gap 8 mmol/L (8-16); Aspartate Amino Transferase 20 U/L (14-36); Bilirubin,Total 0.4 mg/dL (0.2-1.3); Blood Urea Nitrogen 12 mg/dL (7-17); Calcium 8.7 mg/dL (8.4-10.2); Carbon Dioxide 26 mmol/L (22-30); Chloride 106 mmol/L (98-107); Estimated CRCL calculation 86 ml/min; Estimated Glomerular Filt Rate > 60; Glucose 176 mg/dL (65-110); Magnesium 1.9 mg/dL (1.6-2.3); Potassium 4.1 mmol/L (3.4-5.0); Sodium 140 mmol/L (137-145)
--- NOTE | 2021-02-25 07:12 | WPDGICN ---
Assessment and Plan Assessment and plan (1) Diarrhea: Code(s): R19.7 - Diarrhea, unspecified Status: Acute Assessment and Plan: Patient has a longstanding history of diarrhea this appears to have worsened recently. Likely related to diabetic diarrhea . Patient has begun to develop some neurological signs with some numbness to her feet that is associated with this along with the typical finding of nocturnal diarrhea. Plan is for fiber supplementation. Stool culture should be obtained initially to exclude infection. We can consider electively a colonoscopy that can be performed either before discharge or as an outpatient. Mainly to Further exclude organic disease. (2) Type 2 diabetes mellitus: Qualifiers: Diabetes mellitus fdc insulin use: with fdc use Code(s): E11.9 - Type 2 diabetes mellitus without complications Status: Acute Assessment and Plan: Patient admitted with poorly controlled diabetes. She was having episodes of hypoglycemia. Would defer preparation for colonoscopy until this is controlled. Patient reports no stools since admission the hospital. Apparently because she has had better control of her sugar levels. Stool cultures are pending initially prior to any invasive workup (3) Bipolar disorder: Code(s): F31.9 - Bipolar disorder, unspecified Status: Chronic GI Consult Note Consult date/time: 02/25/21 07:13 HPI: Kathi Minaya is a 55 year old female I am asked to see because of diarrhea. Patient has an underlying history of bipolar illness. She has a longstanding history of diabetes for more than 15 years be she has been treated with both insulin and oral agents. She states she has had diarrhea for several years. It appears to have intensified over the last several weeks. Because of this her metformin was discontinued a month ago. Patient has been on various medications admitted the hospital with hypoglycemia. Patient reports that her diarrhea worsens when her sugar level is low. She denies any bleeding. She does have some vague abdominal discomfort associated with that. She has had no travel. No one else at home has been ill. She states that diarrhea occurs predominantly in night And that occasionally she will lose control. Family history is noncontributory. patient does report some numbness in her feet suggesting diabetic neuropathy.She does report having had a screening colonoscopy several years ago in [place] that was unremarkable. Review of Systems Review of Systems: All systems reviewed & are unremarkable except as noted in HPI and below PMFSH Past Medical History Medical History Bipolar disorder CVA (cerebral vascular accident) Depression with anxiety Diabetes type 2, controlled Hypothyroidism Migraine Surgical History Surgical History H/O left knee surgery H/O: hysterectomy History of back surgery History of bilateral carpal tunnel release History of cholecystectomy History of neck surgery Previous section Family History Family History Grandparent Acute myocardial infarction Hypertension Diabetes mellitus Father Murder Mother Lung cancer Social History Social History Social History: the patient is and has a fiancee. She has 3 grown children. She is on disability. She denies any alcohol use. She does occasionally smoke marijuana. She still continues to smoke half a pack a cigarettes a day for over 10 years. She recently moved in with her best friend in this area she otherwise she is from [place]. She now has a fiancee. 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 She denies any illicit drugs but has used ma
[2021-02-25 08:01] LABS: Glucose Point of Care 206 mg/dl (65-105)
[2021-02-25] MEDS: SUMAtriptan SUCCINATE 25 MG TABLET 100 MG PO (09:06)
[2021-02-25] MEDS: ATORVASTATIN 40 MG TABLET PO (09:06)
[2021-02-25] MEDS: PANTOPRAZOLE 40 MG TABLET PO (09:06)
[2021-02-25] MEDS: SERTRALINE HCL 50 MG TABLET 200 MG PO (09:06)
--- NOTE | 2021-02-25 11:00 | P.PNIM_ITS ---
Progress Note: A&P Assessment and Plan (1) Hypoglycemia associated with diabetes: Code(s): E11.649 - Type 2 diabetes mellitus with hypoglycemia without coma Status: Acute Assessment and Plan: * Glucose has been better controlled this shift. * She did state that she has self reduced her own medications. * Probably secondary to the fact that she has been having diarrhea and has been still taking higher regimen of insulin and glipizide and Victoza * Will be holding insulin glipizide and Victoza * Trend blood sugars. 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 * Continue to monitor (6) Bipolar disorder: Code(s): F31.9 - Bipolar disorder, unspecified Status: Chronic Assessment and Plan: * On trazodone and sertraline (7) Migraine: Qualifiers: Migraine type: unspecified Status migrainosus presence: without status migrainosus Intractability: not intractable Qualified Code(s): G43.909 - Migraine, unspecified, not intractable, without status migrainosus Code(s): G43.909 - Migraine, unspecified, not intractable, without status migrainosus Status: Chronic Assessment and Plan: * Continue sumatriptan as need (8) Diarrhea: Code(s): R19.7 - Diarrhea, unspecified Status: Acute Assessment and Plan: * Reports diarrhea for three weeks * Stool cultures pending * GI consulted thank you (9) Leukocytosis: Code(s): D72.829 - Elevated white blood cell count, unspecified Status: Acute Assessment and Plan: * WBCs are slightly elevated but trending down * Chart review kind of reveals a trend of very very mild elevated WBC * Continue to trend * ABD ct did not show any acute problems * Chest xray no acute cardiopulmonary disease Time Spent With Patient Time with patient: Greater than 35 minutes Subjective Date/time seen: 02/25/21 11:00 Interval history: Date/Time: 02/23/21 23:16 Narrative: This is a 55-year-old female with past medical history significant for type 2 diabetes mellitus insulin dependent, gastroesophageal reflux disease, depression, migraine headache, dyslipidemia, tobacco dependence patient smokes a half to 1 pack of cigarettes daily.. Patient presented to the emergency room via EMS due to hypoglycemic episode she has had diarrhea now for 3 weeks, no phlegm or blood, is mostly watery diarrhea, no fevers ,no rigors, no chills, no abdominal pain, no nausea, no vomiting, no cough, no sputum production, no shortness of breath, no leg swelling. Multiple rechecks in the emerge
--- NOTE | 2021-02-25 11:00 | PM.IMPN ---
Progress Note: A&P Assessment and Plan (1) Hypoglycemia associated with diabetes: Code(s): E11.649 - Type 2 diabetes mellitus with hypoglycemia without coma Status: Acute Assessment and Plan: Glucose has been better controlled this shift. She did state that she has self reduced her own medications. Probably secondary to the fact that she has been having diarrhea and has been still taking higher regimen of insulin and glipizide and Victoza Will be holding insulin glipizide and Victoza Trend blood sugars. adjust medications as needed D5 has been DC'd (2) Tobacco abuse: Code(s): Z72.0 - Tobacco use Status: Acute Assessment and Plan: Nicotine patch as needed (3) Hypercholesteremia: Code(s): E78.00 - Pure hypercholesterolemia, unspecified Status: Acute Assessment and Plan: Continue statin (4) Type 2 diabetes mellitus: Qualifiers: Diabetes mellitus medical terminologist insulin use: with medical terminologist use Code(s): E11.9 - Type 2 diabetes mellitus without complications Status: Acute Assessment and Plan: 1800 calorie diet carb consistent See above (5) Depression with anxiety: Code(s): F41.8 - Other specified anxiety disorders Status: Chronic Assessment and Plan: Continue trazodone, continue sertraline. Continue to monitor (6) Bipolar disorder: Code(s): F31.9 - Bipolar disorder, unspecified Status: Chronic Assessment and Plan: On trazodone and sertraline (7) Migraine: Qualifiers: Migraine type: unspecified Status migrainosus presence: without status migrainosus Intractability: not intractable Qualified Code(s): G43.909 - Migraine, unspecified, not intractable, without status migrainosus Code(s): G43.909 - Migraine, unspecified, not intractable, without status migrainosus Status: Chronic Assessment and Plan: Continue sumatriptan as need (8) Diarrhea: Code(s): R19.7 - Diarrhea, unspecified Status: Acute Assessment and Plan: Reports diarrhea for three weeks Stool cultures pending GI consulted thank you (9) Leukocytosis: Code(s): D72.829 - Elevated white blood cell count, unspecified Status: Acute Assessment and Plan: WBCs are slightly elevated but trending down Chart review kind of reveals a trend of very very mild elevated WBC Continue to trend ABD ct did not show any acute problems Chest xray no acute cardiopulmonary disease Time Spent With Patient Time with patient: Greater than 35 minutes Subjective Date/time seen: 02/25/21 11:00 Interval history: Date/Time: 02/23/21 23:16 Narrative: This is a 55-year-old female with past medical history significant for type 2 diabetes mellitus insulin dependent, gastroesophageal reflux disease, depression, migraine headache, dyslipidemia, tobacco dependence patient smokes a half to 1 pack of cigarettes daily.. Patient presented to the emergency room via EMS due to hypoglycemic episode she has had diarrhea now for 3 weeks, no phlegm or blood, is mostly watery diarrhea, no fevers ,no rigors, no chills, no abdominal pain, no nausea, no vomiting, no cough, no sputum production, no shortness of breath, no leg swelling. Multiple rechecks in the emergency room showed blood sugars in the 40s and 50s she has been placed on D10. Preliminary workup has been essentially nonrevealing. Patient is been placed in observation. Date/Time: 02/24/21 11:15 Patient was very concerned when I went into see her about the diarrhea. She did not talk about anything else. She told me that she has had this diarrhea for the last three weeks. She stated that she used to be on Metformin, however, she was take off of that about 3 weeks ago for the same concerns of diarrhea. She explained that she has used Imodium which d
[2021-02-25 11:50] LABS: Glucose Point of Care 163 mg/dl (65-105)
[2021-02-25 14:00] VITALS: BP 102/59; PULSE 76; RESP 20; TEMP 36.4; O2SAT 99
[2021-02-25] MEDS: HYDROcodone/acetaminophen (*CRX) 5-325 MG TABLET 1 TAB PO (15:56)
[2021-02-25] MEDS: ENOXAPARIN 40 MG/0.4 ML SYRINGE SUB-Q (15:58)
[2021-02-25 16:54] LABS: Glucose Point of Care 150 mg/dl (65-105)
[2021-02-25] MEDS: traZODone HCL 50 MG TABLET 200 MG PO (20:31)
[2021-02-25] MEDS: TIZANIDINE HCL 2 MG TABLET PO (20:31)
[2021-02-25 20:51] LABS: Glucose Point of Care 172 mg/dl (65-105)
[2021-02-25 22:00] VITALS: BP 95/54; PULSE 68; RESP 18; TEMP 36.3; O2SAT 99
[2021-02-26 00:15] LABS: Glucose Point of Care 162 mg/dl (65-105)
[2021-02-26] MEDS: HYDROcodone/acetaminophen (*CRX) 5-325 MG TABLET 1 TAB PO ×4 (00:17→18:40)
[2021-02-26 04:08] LABS: Glucose Point of Care 137 mg/dl (65-105)
[2021-02-26 06:00] VITALS: BP 93/57; PULSE 68; RESP 16; TEMP 36.4; O2SAT 99
[2021-02-26 06:09] LABS: Basophils Absolute Auto 0.1 K/mm3 (0.0-0.1); Basophils Percent Auto 0.8 % (0.2-1.2); Eosinophils Absolute Auto 0.4 K/mm3 (0-0.3); Eosinophils Percent Auto 4.8 % (0-4.4); Hematocrit 33.4 % (37.0-47.0); Hemoglobin 11.2 g/dL (12.0-15.0); Immature Granulocyte Absolute 0.02 K/mm3 (0.00-0.031); Immature Granulocyte Percent A 0.2 % (0-0.5); Lymphocytes Absolute Auto 3.77 K/mm3 (0.9-3.2); Lymphocytes Percent Auto 43.7 % (18.3-44.2); Mean Corpuscular HGB Conc 33.5 g/dl (32-36); Mean Corpuscular Hemoglobin 28.9 pg (26-34); Mean Corpuscular Volume 86.1 fl (80-100); Mean Platelet Volume 9.1 fl (7.4-10.4); Monocytes Absolute Auto 0.6 K/mm3 (0.1-0.6); Neutrophils Absolute Auto 3.8 K/mm3 (1.3-6.7); Neutrophils Percent Auto 43.5 % (45.5-73.1); Platelet Count Result 254 k/mm3 (150-375); Red Blood Count 3.88 M/mm3 (4.2-5.4); Red Cell Distribution Width 13.8 % (11.5-14.5); White Blood Count 8.6 K/mm3 (4.5-10.0)
[2021-02-26 06:16] LABS: Alanine Aminotransferase 13 U/L (4-35); Albumin Level 3.5 g/dL (3.5-5.1); Alkaline Phosphatase 63 U/L (38-126); Anion Gap 7 mmol/L (8-16); Aspartate Amino Transferase 18 U/L (14-36); Bilirubin,Total 0.4 mg/dL (0.2-1.3); Blood Urea Nitrogen 14 mg/dL (7-17); Calcium 8.7 mg/dL (8.4-10.2); Carbon Dioxide 26 mmol/L (22-30); Chloride 107 mmol/L (98-107); Estimated CRCL calculation 86 ml/min; Estimated Glomerular Filt Rate > 60; Glucose 149 mg/dL (65-110); Magnesium 1.8 mg/dL (1.6-2.3); Potassium 4.5 mmol/L (3.4-5.0); Sodium 140 mmol/L (137-145)
[2021-02-26] MEDS: LEVOTHYROXINE SODIUM 150 MCG TABLET PO (06:30)
--- NOTE | 2021-02-26 07:00 | P.PNIM_ITS ---
Progress Note: A&P Assessment and Plan (1) Hypoglycemia associated with diabetes: Code(s): E11.649 - Type 2 diabetes mellitus with hypoglycemia without coma Status: Acute Assessment and Plan: * Current glucose 149 * Glucose has been better controlled this shift. * She did state that she has self reduced her own medications. * Probably secondary to the fact that she has been having diarrhea and has been still taking higher regimen of insulin and glipizide and Victoza * Will be holding insulin glipizide and Victoza * Trend blood sugars. * adjust medications as needed * Sliding scale added (2) Type 2 diabetes mellitus: Qualifiers: Diabetes mellitus infrastructure architect insulin use: with group home use Code(s): E11.9 - Type 2 diabetes mellitus without complications Status: Acute Assessment and Plan: * 1800 calorie diet carb consistent * See above (3) Tobacco abuse: Code(s): Z72.0 - Tobacco use Status: Acute Assessment and Plan: * Nicotine patch as needed (4) Hypercholesteremia: Code(s): E78.00 - Pure hypercholesterolemia, unspecified Status: Acute Assessment and Plan: * Continue statin (5) Depression with anxiety: Code(s): F41.8 - Other specified anxiety disorders Status: Chronic Assessment and Plan: * Continue trazodone, continue sertraline. * Continue to monitor (6) Bipolar disorder: Code(s): F31.9 - Bipolar disorder, unspecified Status: Chronic Assessment and Plan: * On trazodone and sertraline (7) Migraine: Qualifiers: Intractability: not intractable Migraine type: unspecified Status migrainosus presence: without status migrainosus Qualified Code(s): G43.909 - Migraine, unspecified, not intractable, without status migrainosus Code(s): G43.909 - Migraine, unspecified, not intractable, without status migrainosus Status: Chronic Assessment and Plan: * Continue sumatriptan as need * [place] added for further comfort (8) Diarrhea: Code(s): R19.7 - Diarrhea, unspecified Status: Acute Assessment and Plan: * Reports diarrhea for three weeks * Stool cultures pending * GI consulted thank you * Colonoscopy scheduled for tomorrow (9) Leukocytosis: Code(s): D72.829 - Elevated white blood cell count, unspecified Status: Acute Assessment and Plan: * WBCs better today at 8.6 * Continue to trend * ABD ct did not show any acute problems * Chest xray no acute cardiopulmonary disease (10) Headache: Code(s): R51.9 - Headache, unspecified Status: Acute Assessment and Plan: * Takes Imitrex at home * [place] also available Time Spent With Patient Time with patient: Greater than 35 minutes Subjective Date/time seen: 02/26/21 0700 Interval history: Date/Time: 02/23/21 23:16 Narrative: This is a 55-year-old female with past medical history significant for type 2 diabetes mellitus insulin dependent, gastroesophageal reflux disease, depression, migraine headache, dyslipidemia, tobacco dependence patient smokes a half to 1 pack of cigarettes daily.. Patient presented to the emergency room via EMS due to hypoglycemic episode she has had diarrhea now for 3 weeks, no
--- NOTE | 2021-02-26 07:00 | PM.IMPN ---
Progress Note: A&P Assessment and Plan (1) Hypoglycemia associated with diabetes: Code(s): E11.649 - Type 2 diabetes mellitus with hypoglycemia without coma Status: Acute Assessment and Plan: Current glucose 149 Glucose has been better controlled this shift. She did state that she has self reduced her own medications. Probably secondary to the fact that she has been having diarrhea and has been still taking higher regimen of insulin and glipizide and Victoza Will be holding insulin glipizide and Victoza Trend blood sugars. adjust medications as needed Sliding scale added (2) Type 2 diabetes mellitus: Qualifiers: Diabetes mellitus care home insulin use: with care home use Code(s): E11.9 - Type 2 diabetes mellitus without complications Status: Acute Assessment and Plan: 1800 calorie diet carb consistent See above (3) Tobacco abuse: Code(s): Z72.0 - Tobacco use Status: Acute Assessment and Plan: Nicotine patch as needed (4) Hypercholesteremia: Code(s): E78.00 - Pure hypercholesterolemia, unspecified Status: Acute Assessment and Plan: Continue statin (5) Depression with anxiety: Code(s): F41.8 - Other specified anxiety disorders Status: Chronic Assessment and Plan: Continue trazodone, continue sertraline. Continue to monitor (6) Bipolar disorder: Code(s): F31.9 - Bipolar disorder, unspecified Status: Chronic Assessment and Plan: On trazodone and sertraline (7) Migraine: Qualifiers: Intractability: not intractable Migraine type: unspecified Status migrainosus presence: without status migrainosus Qualified Code(s): G43.909 - Migraine, unspecified, not intractable, without status migrainosus Code(s): G43.909 - Migraine, unspecified, not intractable, without status migrainosus Status: Chronic Assessment and Plan: Continue sumatriptan as need [place] added for further comfort (8) Diarrhea: Code(s): R19.7 - Diarrhea, unspecified Status: Acute Assessment and Plan: Reports diarrhea for three weeks Stool cultures pending GI consulted thank you Colonoscopy scheduled for tomorrow (9) Leukocytosis: Code(s): D72.829 - Elevated white blood cell count, unspecified Status: Acute Assessment and Plan: WBCs better today at 8.6 Continue to trend ABD ct did not show any acute problems Chest xray no acute cardiopulmonary disease (10) Headache: Code(s): R51.9 - Headache, unspecified Status: Acute Assessment and Plan: Takes Imitrex at home [place] also available Time Spent With Patient Time with patient: Greater than 35 minutes Subjective Date/time seen: 02/26/21 0700 Interval history: Date/Time: 02/23/21 23:16 Narrative: This is a 55-year-old female with past medical history significant for type 2 diabetes mellitus insulin dependent, gastroesophageal reflux disease, depression, migraine headache, dyslipidemia, tobacco dependence patient smokes a half to 1 pack of cigarettes daily.. Patient presented to the emergency room via EMS due to hypoglycemic episode she has had diarrhea now for 3 weeks, no phlegm or blood, is mostly watery diarrhea, no fevers ,no rigors, no chills, no abdominal pain, no nausea, no vomiting, no cough, no sputum production, no shortness of breath, no leg swelling. Multiple rechecks in the emergency room showed blood sugars in the 40s and 50s she has been placed on D10. Preliminary workup has been essentially nonrevealing. Patient is been placed in observation. Date/Time: 02/24/21 11:15 Patient was very concerned when I went into see her about the diarrhea. She did not talk about anything else. She told me that she has had this diarrhea for the last three weeks. She s
--- NOTE | 2021-02-26 08:03 | WPDGIPROGNO ---
Progress Note: A&P Assessment and Plan (1) Diarrhea: Code(s): R19.7 - Diarrhea, unspecified Status: Acute Assessment and Plan: Patient with ongoing diarrhea. Is been present for quite some time but appears to have worsened over last 3 weeks. I suspect this is related to diabetic diarrhea . strict glucose control will be helpful. Adding fiber supplements may be helpful. Stool cultures are in progress to exclude infectious etiology. Fiber supplements will be started to hopefully bulk her stools. Colonoscopy will be planned tomorrow, , after preparation today. (2) Type 2 diabetes mellitus: Qualifiers: Diabetes mellitus intermediate insulin use: with termination clerk use Code(s): E11.9 - Type 2 diabetes mellitus without complications Status: Acute (3) Hypoglycemia associated with diabetes: Code(s): E11.649 - Type 2 diabetes mellitus with hypoglycemia without coma Status: Acute (4) Bipolar disorder: Code(s): F31.9 - Bipolar disorder, unspecified Status: Chronic Subjective Date/time seen: 02/26/21 08:03 Patient alert more comfortable this morning. The reports several soft to liquid stools last evening. She she denies any bleeding. She denies abdominal pain. Stool cultures are in progress. Diabetes being treated. Review of Systems Review of Systems: All systems reviewed & are unremarkable except as noted in HPI and below Exam Narrative: Physical exam reveals patient be alert. Vital signs are stable. HEENT exam reveals no icterus. Lungs are clear. Heart without murmur. Abdomen bowel sounds present soft nontender with no organomegaly. Objective Data Vital Signs Vital Signs: Vital Signs - 24 hr 02/25/21 14:00 02/25/21 22:00 02/26/21 06:00 Temperature 97.5 F L 97.4 F L 97.5 F L Pulse Rate 76 68 68 Respiratory Rate 20 18 16 Blood Pressure 102/59 L 95/54 L 93/57 L Pulse Oximetry 99 99 99 Intake/Output Intake/Output: Intake & Output 02/23/21 02/24/21 02/25/21 02/26/21 23:59 23:59 23:59 23:59 Intake Total 2870 2720 500 Balance 2870 2720 500 Meds/Results Medications: Active Medications Generic Name Dose Route Start Last Admin Trade Name Freq PRN Reason Stop Dose Admin Acetaminophen 1,000 mg 02/24/21 15:31 02/25/21 11:21 Acetaminophen 500 Mg Tablet PO 1,000 mg Q6H PRN Administration Mild Pain (1-3) or Fever Hydrocodone Bitart/Acetaminophen 1 tab 02/25/21 15:30 02/26/21 00:17 Hydrocodone/Acetaminophen (*Crx) 5-325 Mg Tablet PO 1 tab Q4H PRN Administration Pain Rated 4-10 Atorvastatin Calcium 40 mg 02/24/21 09:00 02/25/21 09:06 Atorvastatin 40 Mg Tablet PO 40 mg DAILY BE Administration Dextrose 12.5 gm 02/24/21 03:17 Dextrose 50% 25 Gm/50 Ml Syringe IV PUSH PRN PRN Hypoglycemia Protocol Enoxaparin Sodium 40 mg 02/24/21 16:00 02/25/21 15:58 Enoxaparin 40 Mg/0.4 Ml Syringe SUB-Q 40 mg DAILY@1600 BE Administration Glucagon 1 mg 02/24/21 03:17 Glucagon For Inj 1 Mg Vial IM PRN PRN Hypoglycemia Protocol Glucose 15 gm 02/24/21 03:17 Glucose Oral Gel 15 Gm Of Glucse In 37.5 Gm Tube PO PRN PRN Hypoglycemia Protocol Dextrose 1,000 mls @ 100 mls/hr 02/24/21 03:17 Dextrose 5% 1,000 Ml IVPB PRN PRN Hypoglycemia Protocol Insulin Aspart 2 - 5 units 02/25/21 17:00 02/25/21 16:52 Insulin Aspart (*Bkc) 100 Units/Ml SUB-Q Not Given TIDWM BE Protocol Levothyroxine Sodium 150 mcg 02/24/21 06:30 02/26/21 06:30 Levothyroxine Sodium 150 Mcg Tablet PO 150 mcg DAILY@0630 BE Administration Pantoprazole Sodium 40 mg 02/24/21 09:00 02/25/21 09:06 Pantoprazole 40 Mg Tablet PO 40 mg QAM BE Administration Sertraline HCl 200 mg 02/24/21 09:00 02/25/21 09:06 Sertraline Hcl 50 Mg Tablet PO 200 mg DAILY BE Administration Sumatriptan Succinate 100 mg
[2021-02-26 08:13] LABS: Glucose Point of Care 163 mg/dl (65-105)
[2021-02-26] MEDS: PANTOPRAZOLE 40 MG TABLET PO (08:24)
[2021-02-26] MEDS: ATORVASTATIN 40 MG TABLET PO (08:24)
[2021-02-26] MEDS: SERTRALINE HCL 50 MG TABLET 200 MG PO (08:24)
[2021-02-26] MEDS: PEG (High)/E-LYTE SOLN 4,000 ML BTL 4000 ML PO (10:40)
--- NOTE | 2021-02-26 12:03 | PCCCNOTE ---
On 02/26/21, the student, [Ivonne Johnston ], provided care and completed [facility] documentation on this patient. I have reviewed the student's documentation and agree with the findings.
[2021-02-26 12:05] LABS: Glucose Point of Care 186 mg/dl (65-105)
[2021-02-26 14:00] VITALS: BP 94/60; PULSE 72; RESP 14; TEMP 36; O2SAT 99
[2021-02-26] MEDS: ENOXAPARIN 40 MG/0.4 ML SYRINGE SUB-Q (15:25)
[2021-02-26 17:15] LABS: Glucose Point of Care 205 mg/dl (65-105)
[2021-02-26] MEDS: INSULIN ASPART (*BKC) 100 UNITS/ML SUB-Q (17:35)
[2021-02-26] MEDS: traZODone HCL 50 MG TABLET 200 MG PO (20:21)
[2021-02-26] MEDS: TIZANIDINE HCL 2 MG TABLET PO (20:21)
[2021-02-26 21:08] LABS: Glucose Point of Care 145 mg/dl (65-105)
[2021-02-26 22:00] VITALS: BP 107/62; PULSE 72; RESP 18; TEMP 36.1; O2SAT 100
[2021-02-27 00:18] LABS: Glucose Point of Care 136 mg/dl (65-105)
[2021-02-27 04:20] LABS: Glucose Point of Care 145 mg/dl (65-105)
[2021-02-27 06:00] VITALS: BP 92/57; PULSE 69; RESP 16; TEMP 36.5; O2SAT 99
[2021-02-27 06:19] LABS: Basophils Absolute Auto 0.1 K/mm3 (0.0-0.1); Basophils Percent Auto 0.7 % (0.2-1.2); Eosinophils Absolute Auto 0.5 K/mm3 (0-0.3); Eosinophils Percent Auto 5.7 % (0-4.4); Hematocrit 31.2 % (37.0-47.0); Hemoglobin 10.4 g/dL (12.0-15.0); Immature Granulocyte Absolute 0.03 K/mm3 (0.00-0.031); Immature Granulocyte Percent A 0.4 % (0-0.5); Lymphocytes Absolute Auto 3.18 K/mm3 (0.9-3.2); Lymphocytes Percent Auto 37.6 % (18.3-44.2); Mean Corpuscular HGB Conc 33.3 g/dl (32-36); Mean Corpuscular Hemoglobin 27.8 pg (26-34); Mean Corpuscular Volume 83.4 fl (80-100); Mean Platelet Volume 9.3 fl (7.4-10.4); Monocytes Absolute Auto 0.5 K/mm3 (0.1-0.6); Monocytes Percent Auto 5.9 % (2.6-8.5); Neutrophils Absolute Auto 4.2 K/mm3 (1.3-6.7); Neutrophils Percent Auto 49.7 % (45.5-73.1); Platelet Count Result 279 k/mm3 (150-375); Red Blood Count 3.74 M/mm3 (4.2-5.4); Red Cell Distribution Width 13.8 % (11.5-14.5); White Blood Count 8.5 K/mm3 (4.5-10.0)
[2021-02-27 06:50] LABS: Alanine Aminotransferase 19 U/L (4-35); Albumin Level 3.6 g/dL (3.5-5.1); Alkaline Phosphatase 68 U/L (38-126); Anion Gap 4 mmol/L (8-16); Aspartate Amino Transferase 28 U/L (14-36); Bilirubin,Total 0.3 mg/dL (0.2-1.3); Blood Urea Nitrogen 12 mg/dL (7-17); Calcium 8.5 mg/dL (8.4-10.2); Carbon Dioxide 29 mmol/L (22-30); Chloride 105 mmol/L (98-107); Estimated CRCL calculation 86 ml/min; Estimated Glomerular Filt Rate > 60; Glucose 149 mg/dL (65-110); Magnesium 1.9 mg/dL (1.6-2.3); Potassium 4.6 mmol/L (3.4-5.0); Sodium 138 mmol/L (137-145)
--- NOTE | 2021-02-27 07:34 | P.PNIM_ITS ---
Progress Note: A&P Assessment and Plan (1) Hypoglycemia associated with diabetes: Code(s): E11.649 - Type 2 diabetes mellitus with hypoglycemia without coma Status: Acute Assessment and Plan: * Current glucose 145 * Glucose has been better controlled * She did state that she has self reduced her own medications. * Probably secondary to the fact that she has been having diarrhea and has been still taking higher regimen of insulin and glipizide and Victoza * Will be holding insulin glipizide and Victoza * Trend blood sugars. * adjust medications as needed * Sliding scale added (2) Type 2 diabetes mellitus: Qualifiers: Diabetes mellitus half-way insulin use: with half-way use Code(s): E11.9 - Type 2 diabetes mellitus without complications Status: Acute Assessment and Plan: * 1800 calorie diet carb consistent * See above (3) Tobacco abuse: Code(s): Z72.0 - Tobacco use Status: Acute Assessment and Plan: * Nicotine patch as needed (4) Hypercholesteremia: Code(s): E78.00 - Pure hypercholesterolemia, unspecified Status: Acute Assessment and Plan: * Continue statin (5) Depression with anxiety: Code(s): F41.8 - Other specified anxiety disorders Status: Chronic Assessment and Plan: * Continue trazodone, continue sertraline. * Continue to monitor (6) Bipolar disorder: Code(s): F31.9 - Bipolar disorder, unspecified Status: Chronic Assessment and Plan: * On trazodone and sertraline (7) Migraine: Qualifiers: Intractability: not intractable Migraine type: unspecified Status migrainosus presence: without status migrainosus Qualified Code(s): G43.909 - Migraine, unspecified, not intractable, without status migrainosus Code(s): G43.909 - Migraine, unspecified, not intractable, without status migrainosus Status: Chronic Assessment and Plan: * Continue sumatriptan as need * [place] added for further comfort (8) Diarrhea: Code(s): R19.7 - Diarrhea, unspecified Status: Acute Assessment and Plan: * Reports diarrhea for three weeks * Stool cultures have no growth thus far * Probably related to uncontrolled diabetes * GI consulted thank you * Colonoscopy: (9) Leukocytosis: Code(s): D72.829 - Elevated white blood cell count, unspecified Status: Acute Assessment and Plan: * WBCs better today at 8.5 * Continue to trend * ABD ct did not show any acute problems * Chest xray no acute cardiopulmonary disease (10) Headache: Code(s): R51.9 - Headache, unspecified Status: Acute Assessment and Plan: * Takes Imitrex at home * [place] also available Time Spent With Patient Time with patient: Greater than 35 minutes Subjective Date/time seen: 02/27/21 07:34 Interval history: Date/Time: 02/23/21 23:16 Narrative: This is a 55-year-old female with past medical history significant for type 2 diabetes mellitus insulin dependent, gastroesophageal reflux disease, depression, migraine headache, dyslipidemia, tobacco dependence patient smokes a half to 1 pack of cigarettes daily.. Patient presented to the emergency room via EMS due to hypoglycemic episode she has had diarr
--- NOTE | 2021-02-27 07:34 | PM.IMPN ---
Progress Note: A&P Assessment and Plan (1) Hypoglycemia associated with diabetes: Code(s): E11.649 - Type 2 diabetes mellitus with hypoglycemia without coma Status: Acute Assessment and Plan: Current glucose 145 Glucose has been better controlled She did state that she has self reduced her own medications. Probably secondary to the fact that she has been having diarrhea and has been still taking higher regimen of insulin and glipizide and Victoza Will be holding insulin glipizide and Victoza Trend blood sugars. adjust medications as needed Sliding scale added (2) Type 2 diabetes mellitus: Qualifiers: Diabetes mellitus custodial insulin use: with termite helper use Code(s): E11.9 - Type 2 diabetes mellitus without complications Status: Acute Assessment and Plan: 1800 calorie diet carb consistent See above (3) Tobacco abuse: Code(s): Z72.0 - Tobacco use Status: Acute Assessment and Plan: Nicotine patch as needed (4) Hypercholesteremia: Code(s): E78.00 - Pure hypercholesterolemia, unspecified Status: Acute Assessment and Plan: Continue statin (5) Depression with anxiety: Code(s): F41.8 - Other specified anxiety disorders Status: Chronic Assessment and Plan: Continue trazodone, continue sertraline. Continue to monitor (6) Bipolar disorder: Code(s): F31.9 - Bipolar disorder, unspecified Status: Chronic Assessment and Plan: On trazodone and sertraline (7) Migraine: Qualifiers: Intractability: not intractable Migraine type: unspecified Status migrainosus presence: without status migrainosus Qualified Code(s): G43.909 - Migraine, unspecified, not intractable, without status migrainosus Code(s): G43.909 - Migraine, unspecified, not intractable, without status migrainosus Status: Chronic Assessment and Plan: Continue sumatriptan as need [place] added for further comfort (8) Diarrhea: Code(s): R19.7 - Diarrhea, unspecified Status: Acute Assessment and Plan: Reports diarrhea for three weeks Stool cultures have no growth thus far Probably related to uncontrolled diabetes GI consulted thank you Colonoscopy: (9) Leukocytosis: Code(s): D72.829 - Elevated white blood cell count, unspecified Status: Acute Assessment and Plan: WBCs better today at 8.5 Continue to trend ABD ct did not show any acute problems Chest xray no acute cardiopulmonary disease (10) Headache: Code(s): R51.9 - Headache, unspecified Status: Acute Assessment and Plan: Takes Imitrex at home [place] also available Time Spent With Patient Time with patient: Greater than 35 minutes Subjective Date/time seen: 02/27/21 07:34 Interval history: Date/Time: 02/23/21 23:16 Narrative: This is a 55-year-old female with past medical history significant for type 2 diabetes mellitus insulin dependent, gastroesophageal reflux disease, depression, migraine headache, dyslipidemia, tobacco dependence patient smokes a half to 1 pack of cigarettes daily.. Patient presented to the emergency room via EMS due to hypoglycemic episode she has had diarrhea now for 3 weeks, no phlegm or blood, is mostly watery diarrhea, no fevers ,no rigors, no chills, no abdominal pain, no nausea, no vomiting, no cough, no sputum production, no shortness of breath, no leg swelling. Multiple rechecks in the emergency room showed blood sugars in the 40s and 50s she has been placed on D10. Preliminary workup has been essentially nonrevealing. Patient is been placed in observation. Date/Time: 02/24/21 11:15 Patient was very concerned when I went into see her about the diarrhea. She did not talk about anything else. She told me that she has had this diarrhea for the l
[2021-02-27 08:22] LABS: Glucose Point of Care 164 mg/dl (65-105)
[2021-02-27] MEDS: HYDROcodone/acetaminophen (*CRX) 5-325 MG TABLET 1 TAB PO ×2 (09:01→15:55)
[2021-02-27 12:26] LABS: Glucose Point of Care 138 mg/dl (65-105)
--- NOTE | 2021-02-27 12:50 | WPDANESEPPF ---
Anes - Initial Pre Proc Eval Procedure: Operation Date: 02/27/21 14:15 Proposed Procedures p Colonoscopy - Avery Davenport MD Date/Time: 02/27/21 12:50 Pre Op Diagnosis: Hypoglycemia Patient Data Age: 55 Gender: F Height: 1.6 m Weight: 68.8 kg Last Vital Signs Temp 36.5 C 02/27/21 06:00 Pulse 69 02/27/21 06:00 Resp 16 02/27/21 06:00 BP 92/57 L 02/27/21 06:00 Pulse Ox 99 02/27/21 06:00 Allergies Allergy/AdvReac Type Severity Reaction Status Date / Time codeine Allergy Unknown Verified 02/27/21 13:16 fluoxetine [From Prozac] Allergy Unknown Verified 02/27/21 13:16 ketorolac [From Toradol] Allergy Unknown Verified 02/27/21 13:16 steroids Allergy Unknown Uncoded 02/23/21 21:06 Home Medications Medication Instructions Recorded Confirmed Type Katieagldevonte ZeeikPen U-100 Insulin 34 unit SUBCUT QPM 02/09/20 02/24/21 History Victoza 2-Claudio 0.6 mg SUBCUT DAILY 02/09/20 02/24/21 History glipizide 10 mg PO DAILY 02/09/20 02/24/21 History omeprazole 20 mg PO DAILY 02/09/20 02/24/21 History sumatriptan succinate 100 mg PO DAILY PRN 02/09/20 02/24/21 History tizanidine 2 mg PO HS 02/09/20 02/24/21 History trazodone 200 mg PO HS 02/09/20 02/24/21 History vit D3-vit K2-ca fructoborate 1 tablet PO WEEKLY 02/09/20 02/24/21 History atorvastatin 40 mg PO DAILY #30 tablet 02/11/20 02/24/21 Rx levothyroxine [Synthroid] 150 mcg PO DAILY@0630 #30 tablet 02/11/20 02/24/21 Rx sertraline 200 mg PO DAILY 02/23/21 02/24/21 History Laboratory Tests 02/26/21 02/26/21 02/27/21 17:05 20:24 00:12 WBC RBC Hgb Hct MCV MCH MCHC RDW Plt Count MPV Immature Gran % (Auto) Neut % (Auto) Lymph % (Auto) [place] % (Auto) Eos % (Auto) Baso % (Auto) Lymph # (Auto) [place] # (Auto) Eos # (Auto) Baso # (Auto) Abs Immat Gran (auto) Absolute Neuts (auto) Absolute Nucleated RBC Nucleated RBC % Sodium Potassium Chloride Carbon Dioxide Anion Gap BUN Creatinine Estim Creat Clear Calc Estimated GFR Glucose POC Capillary Glucose 205 mg/dl H mg/dl 145 mg/dl H mg/dl 136 mg/dl H mg/dl (65-105) (65-105) (65-105) Calcium Magnesium Total Bilirubin AST ALT Alkaline Phosphatase Total Protein Albumin 02/27/21 02/27/21 02/27/21 04:18 05:16 05:16 WBC 8.5 K/mm3 K/mm3 (4.5-10.0) RBC 3.74 M/mm3 L M/mm3 (4.2-5.4) Hgb 10.4 g/dL L g/dL (12.0-15.0) Hct 31.2 % L % (37.0-47.0) MCV 83.4 fl fl (80-100) MCH 27.8 pg pg (26-34) MCHC 33.3 g/dl g/dl (32-36) RDW 13.8 % % (11.5-14.5) Plt Count 279 k/mm3 k/mm3 (150-375) MPV 9.3 fl fl (7.4-10.4) Immature Gran % (Auto) 0.4 % % (0-0.5) Neut % (Auto) 49.7 % % (45.5-73.1) Lymph % (Auto) 37.6 % % (18.3-44.2) [place] % (Auto) 5.9 % % (2.6-8.5) Eos % (Auto) 5.7 % H % (0-4.4) Baso % (Auto) 0.7 % % (0.2-1.2) Lymph # (Auto) 3.18 K/mm3 K/mm3 (0.9-3.2) [place] # (Auto) 0.5 K/mm3 K/mm3 (0.1-0.6) Eos # (Auto) 0.5 K/mm3 H K/mm3 (0-0.3) Baso # (Auto) 0.1 K/mm3 K/mm3 (0.0-0.1) Abs Immat Gran (auto) 0.03 K/mm3 K/mm3 (0.00-0.031) Absolute Neuts (auto) 4.2 K/mm3 K/mm3 (1.3-6.7) Absolute Nucleated RBC 0.0 K/mm3 K/mm3 (0.0-0.012) Nucleated RBC % 0.0 % % (0.0-0.2) Sodium 138 mmol/L mmol/L (137-145) Potassium 4.6 mmol/L mmol/L
[2021-02-27 13:20] VITALS: BP 116/64; PULSE 68; RESP 16; TEMP 36.4; O2SAT 100
[2021-02-27 13:29] LABS: Glucose Point of Care 134 mg/dl (65-105)
[2021-02-27] MEDS: LACTATED RINGERS 1,000 ML 150 ML IV CONT (13:31)
[2021-02-27 14:31] VITALS: BP 90/47; PULSE 70; RESP 21; O2SAT 100
[2021-02-27 14:41] VITALS: BP 98/55; PULSE 66; RESP 16; O2SAT 100
[2021-02-27 14:51] VITALS: BP 120/74; PULSE 65; RESP 20; O2SAT 100
[2021-02-27 15:00] LABS: Glucose Point of Care 114 mg/dl (65-105)
--- NOTE | 2021-02-27 15:12 | P.DS_ITS ---
DS: Admitting Diagnosis Discharge Date Date of Service 02/27/21 0905 Admitting Diagnosis Diabetes related diarrhea DS: Discharge Diagnosis Discharge Diagnosis (1) Hypoglycemia associated with diabetes: Code(s): E11.649 - Type 2 diabetes mellitus with hypoglycemia without coma Status: Acute Assessment and Plan: * Current glucose 145 * Glucose has been better controlled * She did state that she has self reduced her own medications. * Probably secondary to the fact that she has been having diarrhea and has been still taking higher regimen of insulin and glipizide and Victoza * Will be holding insulin glipizide and Victoza * Trend blood sugars. * adjust medications as needed * Sliding scale added (2) Type 2 diabetes mellitus: Qualifiers: Diabetes mellitus fpc insulin use: with fpc use Code(s): E11.9 - Type 2 diabetes mellitus without complications Status: Acute Assessment and Plan: * 1800 calorie diet carb consistent * See above (3) Tobacco abuse: Code(s): Z72.0 - Tobacco use Status: Acute Assessment and Plan: * Nicotine patch as needed (4) Hypercholesteremia: Code(s): E78.00 - Pure hypercholesterolemia, unspecified Status: Acute Assessment and Plan: * Continue statin (5) Depression with anxiety: Code(s): F41.8 - Other specified anxiety disorders Status: Chronic Assessment and Plan: * Continue trazodone, continue sertraline. * Continue to monitor (6) Bipolar disorder: Code(s): F31.9 - Bipolar disorder, unspecified Status: Chronic Assessment and Plan: * On trazodone and sertraline (7) Migraine: Qualifiers: Intractability: not intractable Migraine type: unspecified Status migrainosus presence: without status migrainosus Qualified Code(s): G43.909 - Migraine, unspecified, not intractable, without status migrainosus Code(s): G43.909 - Migraine, unspecified, not intractable, without status migrainosus Status: Chronic Assessment and Plan: * Continue sumatriptan as need * [place] added for further comfort (8) Diarrhea: Code(s): R19.7 - Diarrhea, unspecified Status: Acute Assessment and Plan: * Reports diarrhea for three weeks * Stool cultures have no growth thus far * Probably related to uncontrolled diabetes * GI consulted thank you * Colonoscopy: (9) Leukocytosis: Code(s): D72.829 - Elevated white blood cell count, unspecified Status: Acute Assessment and Plan: * WBCs better today at 8.5 * Continue to trend * ABD ct did not show any acute problems * Chest xray no acute cardiopulmonary disease (10) Headache: Code(s): R51.9 - Headache, unspecified Status: Acute Assessment and Plan: * Takes Imitrex at home * [place] also available DS: Summary Hospital Course Hospital Course: This is a 55-year-old female with past medical history significant for type 2 diabetes mellitus insulin dependent, gastroesophageal reflux disease, depression, migraine headache, dyslipidemia, tobacco dependence who presented to the emergency room due to hypoglycemic episode. Upon arrival she was noted to have a blood glucose of 40-50. This was correct
--- NOTE | 2021-02-27 15:12 | PM.DS ---
DS: Admitting Diagnosis Discharge Date Date of Service 02/27/21 0905 Admitting Diagnosis Diabetes related diarrhea DS: Discharge Diagnosis Discharge Diagnosis (1) Hypoglycemia associated with diabetes: Code(s): E11.649 - Type 2 diabetes mellitus with hypoglycemia without coma Status: Acute Assessment and Plan: Current glucose 145 Glucose has been better controlled She did state that she has self reduced her own medications. Probably secondary to the fact that she has been having diarrhea and has been still taking higher regimen of insulin and glipizide and Victoza Will be holding insulin glipizide and Victoza Trend blood sugars. adjust medications as needed Sliding scale added (2) Type 2 diabetes mellitus: Qualifiers: Diabetes mellitus nursing home insulin use: with clinical supervisor use Code(s): E11.9 - Type 2 diabetes mellitus without complications Status: Acute Assessment and Plan: 1800 calorie diet carb consistent See above (3) Tobacco abuse: Code(s): Z72.0 - Tobacco use Status: Acute Assessment and Plan: Nicotine patch as needed (4) Hypercholesteremia: Code(s): E78.00 - Pure hypercholesterolemia, unspecified Status: Acute Assessment and Plan: Continue statin (5) Depression with anxiety: Code(s): F41.8 - Other specified anxiety disorders Status: Chronic Assessment and Plan: Continue trazodone, continue sertraline. Continue to monitor (6) Bipolar disorder: Code(s): F31.9 - Bipolar disorder, unspecified Status: Chronic Assessment and Plan: On trazodone and sertraline (7) Migraine: Qualifiers: Intractability: not intractable Migraine type: unspecified Status migrainosus presence: without status migrainosus Qualified Code(s): G43.909 - Migraine, unspecified, not intractable, without status migrainosus Code(s): G43.909 - Migraine, unspecified, not intractable, without status migrainosus Status: Chronic Assessment and Plan: Continue sumatriptan as need [place] added for further comfort (8) Diarrhea: Code(s): R19.7 - Diarrhea, unspecified Status: Acute Assessment and Plan: Reports diarrhea for three weeks Stool cultures have no growth thus far Probably related to uncontrolled diabetes GI consulted thank you Colonoscopy: (9) Leukocytosis: Code(s): D72.829 - Elevated white blood cell count, unspecified Status: Acute Assessment and Plan: WBCs better today at 8.5 Continue to trend ABD ct did not show any acute problems Chest xray no acute cardiopulmonary disease (10) Headache: Code(s): R51.9 - Headache, unspecified Status: Acute Assessment and Plan: Takes Imitrex at home [place] also available DS: Summary Hospital Course Hospital Course: This is a 55-year-old female with past medical history significant for type 2 diabetes mellitus insulin dependent, gastroesophageal reflux disease, depression, migraine headache, dyslipidemia, tobacco dependence who presented to the emergency room due to hypoglycemic episode. Upon arrival she was noted to have a blood glucose of 40-50. This was corrected. She also noted that she has had severe diarrhea. She stated that she always has diarrhea, but for the last three weeks it has been worse, or since the metformin was discontinued. GI was consult and stool cultures were done. Stool culture were negative and colonoscopy was also normal. Her diarrhea is related to her uncontrolled diabetes. She also had thyroid surgery back on November 14, 2020, and since that time she has lost a lot of weight. She has not had any glucose control since admission, due to her glucose remaining below 200s. WBC was also very slightly elevated, but has came back down and is now
[2021-02-27 15:13] VITALS: BP 128/59; PULSE 62; RESP 16; TEMP 36.6; O2SAT 99
[2021-02-27] MEDS: ENOXAPARIN 40 MG/0.4 ML SYRINGE SUB-Q (15:52)
== END 2021-02-27 16:40 | disposition home or self-care (01) | DRG 420 ==
LOC: ANHED 23:39 → ANH3MEDSUR 02-24 01:16
PROVIDERS: Internal Medicine Gastroenterology; Admitting Provider Internal Medicine; Emergency Provider Emergency Medicine; Visit Provider Nurse Practitioner
PROC: 0DJD8ZZ Inspection of Lower Intestinal Tract, Via Natural or Artificial Opening Endoscopic (ICD-10-PCS; CPT 45378; principal; 2021-02-27 14:15)
DX: E11.649 Type 2 diabetes mellitus with hypoglycemia without coma (principal); E11.69 Type 2 diabetes mellitus with other specified complication; R19.7 Diarrhea, unspecified; E03.9 Hypothyroidism, unspecified; E78.00 Pure hypercholesterolemia, unspecified; F41.8 Other specified anxiety disorders; F31.9 Bipolar disorder, unspecified; G43.909 Migraine, unspecified, not intractable, without status migrainosus; F17.210 Nicotine dependence, cigarettes, uncomplicated; K21.9 Gastro-esophageal reflux disease without esophagitis; D72.829 Elevated white blood cell count, unspecified; Z79.4 Long term (current) use of insulin; Z79.84 Long term (current) use of oral hypoglycemic drugs; Z79.899 Other long term (current) drug therapy; Z86.73 Personal history of transient ischemic attack (TIA), and cerebral infarction without residual deficits
CPT/HCPCS: 36415; 71045; 74177; 80048; 80053; 81003; 82948; 83735; 85025; 87015; 87045; 87269; 87272; 87324; 87427; 88305; 89055; 96365; 96366; 96372; 99285; A9270; G0378; G0379; J1650; J1815; J2704; J7120; Q9967

== ENCOUNTER 2021-04-01 08:06 | Emergency (ER) | payer OTHER, SELFPAY ==
--- NOTE | ~2021-04-01 | CT_ITS ---
EXAMINATION: CTA chest PE protocol DATE: 04/01/2021 11:14 INDICATION: Chest pain and shortness of breath. TECHNIQUE: Computed tomography angiography (CTA) of the chest was performed with 100 mL Omnipaque-350 intravenous contrast timed to evaluate the pulmonary arteries. Coronal maximum intensity projection 3D-reconstructions were created by the technologist. Automated exposure control and iterative reconst ruction technique were employed. The dose-length product was 285.63 mGy-cm. COMPARISON: CT abdomen and pelvis 02/24/2021 FINDINGS: The lung volumes are small. There are groundglass opacities throughout the lungs bilaterall y with volume loss, likely atelectasis. A calcified right lung nodule and calcified right hilar and m ediastinal lymph nodes are consistent with old granulomatous disease. There is a trace left pleural e ffusion. The heart size is normal. There are coronary artery calcifications. No pericardial effusion. There is no pulmonary embolus. There are changes of cholecystectomy. There is moderate thoracic spon dylosis. There are changes of anterior fusion procedure in cervical spine. IMPRESSION: 1. No pulmonary embolus. Reviewed, dictated and finalized at location A. UCTION BOW MAKER IMPRESSION: 1. No pulmonary embolus.
--- NOTE | ~2021-04-01 | XR_ITS ---
EXAMINATION: XR chest 2V DATE: 04/01/2021 08:25 INDICATION: Chest pain and shortness of breath TECHNIQUE: PA and lateral views of the chest were obtained. COMPARISON: Chest radiograph dated 02/25/2021 FINDINGS: Unchanged large calcified nodule in the right upper lung zone consistent with old granulomatous disea se. The lungs remain otherwise clear with no focal airspace opacities, pulmonary edema, pleural effus ion or pneumothorax. The cardiomediastinal silhouette is normal. Postoperative change of lower cervic al anterior spinal fusion with anterior plate and screw fixation and multiple surgical clips. Additio nal cholecystectomy clips in right upper quadrant. IMPRESSION: 1. No acute cardiopulmonary disease. Reviewed, dictated and finalized at location B. OO ARTIST
--- NOTE | 2021-04-01 08:08 | ECG_ITS ---
Measurements Intervals [place] Rate: 88 P: 57 TN: 172 QRS: -47 QRSD: 101 T: 75 QT: 404 QTc: 490 Interpretive Statements SINUS RHYTHM LEFT ANTERIOR FASCICULAR BLOCK BORDERLINE ST-T WAVE ABNORMALITY- HIGH LATERAL LEADS BASELINE WANDER- I, II, AVR, AVL, AVF ABNORMAL ECG Electronically Signed On 04-01-2021 8:50:54 COOKY PACKER by John Mccloud D.O.
[2021-04-01 08:27] LABS: Basophils Absolute Auto 0.1 K/mm3 (0.0-0.1); Basophils Percent Auto 0.6 % (0.2-1.2); Eosinophils Absolute Auto 0.5 K/mm3 (0-0.3); Eosinophils Percent Auto 3.8 % (0-4.4); Hematocrit 37.4 % (37.0-47.0); Hemoglobin 12.6 g/dL (12.0-15.0); Immature Granulocyte Absolute 0.08 K/mm3 (0.00-0.031); Immature Granulocyte Percent A 0.6 % (0-0.5); Lymphocytes Absolute Auto 3.97 K/mm3 (0.9-3.2); Lymphocytes Percent Auto 29.9 % (18.3-44.2); Mean Corpuscular HGB Conc 33.7 g/dl (32-36); Mean Corpuscular Hemoglobin 28.6 pg (26-34); Mean Platelet Volume 9.1 fl (7.4-10.4); Monocytes Absolute Auto 0.6 K/mm3 (0.1-0.6); Monocytes Percent Auto 4.5 % (2.6-8.5); Neutrophils Percent Auto 60.6 % (45.5-73.1); Platelet Count Result 293 k/mm3 (150-375); White Blood Count 13.3 K/mm3 (4.5-10.0)
[2021-04-01 08:37] LABS: Alanine Aminotransferase 18 U/L (4-35); Albumin Level 4.5 g/dL (3.5-5.1); Alkaline Phosphatase 106 U/L (38-126); Anion Gap 11 mmol/L (8-16); Aspartate Amino Transferase 21 U/L (14-36); Bilirubin,Total 0.3 mg/dL (0.2-1.3); Blood Urea Nitrogen 9 mg/dL (7-17); Calcium 8.9 mg/dL (8.4-10.2); Carbon Dioxide 23 mmol/L (22-30); Chloride 98 mmol/L (98-107); Estimated CRCL calculation 87 ml/min; Estimated Glomerular Filt Rate > 60; Glucose 336 mg/dL (65-110); Lipase 51 U/L (23-300); Sodium 132 mmol/L (137-145)
[2021-04-01 08:45] LABS: Prothrombin Time 12.7 Seconds (11.1-14.7)
[2021-04-01 08:46] LABS: Partial Thromboplastin Time 36.3 SECONDS (22.3-36.8)
[2021-04-01 08:49] LABS: Troponin I < 0.012 ng/mL (0.000-0.034)
[2021-04-01 09:26] VITALS: BP 140/90; PULSE 89; RESP 18; TEMP 36.8; O2SAT 100
--- NOTE | 2021-04-01 09:42 | ED.CHESTPAIN ---
HPI - Chest Pain General Chief Complaint: Chest Pain Stated Complaint: chest pain Time Seen by Provider: 04/01/21 09:11 Source: patient Mode of arrival: ambulatory Limitations: no limitations History of Present Illness HPI narrative: This is a 55-year-old female that presents to the emergency department for chest pain ongoing over the last week. Reports a dull, achy, burning chest pain. Worse with movement, and cough. Reports the pain has been constant. She has not taken anything for pain. Reports associated cough, congestion, shortness of breath. She is a current smoker. She has been Covid vaccinated. Denies fever or lower extremity edema. Related Data Home Medications Medication Instructions Recorded Confirmed Victoza 2-Claudio 0.6 mg SUBCUT DAILY 02/09/20 02/24/21 omeprazole 20 mg PO DAILY 02/09/20 02/24/21 sumatriptan succinate 100 mg PO DAILY PRN 02/09/20 02/24/21 tizanidine 2 mg PO HS 02/09/20 02/24/21 trazodone 200 mg PO HS 02/09/20 02/24/21 vit D3-vit K2-ca fructoborate 1 tablet PO WEEKLY 02/09/20 02/24/21 sertraline 200 mg PO DAILY 02/23/21 02/24/21 Allergies Allergy/AdvReac Type Severity Reaction Status Date / Time codeine Allergy Unknown Verified 02/27/21 13:16 fluoxetine [From Prozac] Allergy Unknown Verified 02/27/21 13:16 ketorolac [From Toradol] Allergy Unknown Verified 02/27/21 13:16 steroids Allergy Unknown Uncoded 02/23/21 21:06 Review of Systems Review of Systems: CONSTITUTIONAL: Denies fever ENT: Reports rhinorrhea, congestion, sore throat CARDIOVASCULAR: Reports chest pain. denies edema. RESPIRATORY: Reports cough and dyspnea. All systems reviewed & are unremarkable except as noted in HPI and below PMFSH Past Medical History Medical History (Updated 04/01/21 @ 11:58 by Beatrice Mccormick PA-C) Bipolar disorder CVA (cerebral vascular accident) Depression with anxiety Diabetes type 2, controlled Hypercholesteremia Hypothyroidism Migraine Tobacco abuse Type 2 diabetes mellitus Surgical History Surgical History H/O left knee surgery H/O: hysterectomy History of back surgery History of bilateral carpal tunnel release History of cholecystectomy History of neck surgery Previous section Family History Family History Grandparent Acute myocardial infarction Hypertension Diabetes mellitus Father Murder Mother Lung cancer Social History Social History Social History: the patient is and has a fiancee. She has 3 grown children. She is on disability. She denies any alcohol use. She does occasionally smoke marijuana. She still continues to smoke half a pack a cigarettes a day for over 10 years. She recently moved in with her best friend in this area she otherwise she is from [place]. She now has a fiancee. She does not have a durable power of personal injury attorney for health care and desires to be a full code. She denies any illicit drugs but has used marijuana to help with the pain. Smoking packs per day: 0.5 Smoking cigarettes per day: 10.0 Years smoked: 10 Smoking pack-years: 5.00 Smoking status: Never smoker Tobacco type: cigarettes Second hand tobacco smoke exposure: No Alcohol intake: never Substance use: never Substance use type: marijuana Gender identity (if verbalized by the patient): Male Sexual Orientation (if Verbalized by the Patient): Straight or Heterosexual Spiritual care concerns: No Exam Narrative: GENERAL: Well-appearing, well-nourished, and in no acute distress. HEAD: Normocephalic, atraumatic. EYES: EOMI. ENT: Nares clear, no rhinorrhea or epistaxis. Mucous membranes moist. Oropharynx without tonsillar hypertrophy exudate or other lesions. Bilateral TMs pearly muniz non-bulging NECK: Supple. No adenopathy or masses. CHEST: Clear to auscultation. No respiratory
[2021-04-01 10:24] LABS: D Dimer 0.77 ug/mL (<0.48)
[2021-04-01] MEDS: PANTOPRAZOLE SODIUM IV 40 MG VIAL IV PUSH (10:48)
[2021-04-01 11:37] LABS: Troponin I < 0.012 ng/mL (0.000-0.034)
[2021-04-01 12:21] VITALS: BP 137/78; PULSE 93; RESP 18; O2SAT 97
[2021-04-01 20:28] LABS: SARS-CoV-2 RNA PCR Negative
== END 2021-04-01 12:23 | disposition home or self-care (01) ==
PROVIDERS: Physician Assistant; Emergency Provider Emergency Medicine; PCP Emergency Medicine
DX: B34.9 Viral infection, unspecified (principal); Z20.822 Contact with and (suspected) exposure to COVID-19; E11.9 Type 2 diabetes mellitus without complications; E78.00 Pure hypercholesterolemia, unspecified; E03.9 Hypothyroidism, unspecified; Z86.73 Personal history of transient ischemic attack (TIA), and cerebral infarction without residual deficits; F17.210 Nicotine dependence, cigarettes, uncomplicated; F31.9 Bipolar disorder, unspecified; F41.8 Other specified anxiety disorders; I44.4 Left anterior fascicular block; R94.31 Abnormal electrocardiogram [ECG] [EKG]
CPT/HCPCS: 36415; 71046; 71275; 80053; 83690; 84484; 85025; 85380; 85610; 85730; 87804; 93005; 96374; 96375; 99284; C9113; C9803; J0131; Q9967; U0003; U0005

== ENCOUNTER 2021-04-16 13:00 | Emergency (ER) | payer OTHER, SELFPAY ==
[2021-04-16 13:20] VITALS: BP 113/79; PULSE 88; RESP 18; TEMP 36.3; O2SAT 99
--- NOTE | 2021-04-16 13:27 | ECG_ITS ---
Measurements Intervals [place] Rate: 87 P: 53 [place]: 173 QRS: -62 QRSD: 106 T: 71 QT: 404 QTc: 488 Interpretive Statements SINUS RHYTHM LEFT AXIS DEVIATION LOW QRS VOLTAGE IN PRECORDIAL LEADS CONSIDER INFERIOR INFARCT, AGE INDETERMINATE POOR R WAVE PROGRESSION, ANTERIOR LEADS BORDERLINE T WAVE ABNORMALITY- HIGH LATERAL LEADS ABNORMAL ECG Electronically Signed On 04-17-2021 9:00:14 ONLINE COMMUNICATIONS SPECIALIST by John Mccloud D.O.
--- NOTE | 2021-04-16 17:49 | PC.NURSE ---
Called pt name to be roomed, n/a in the waiting room.
== END 2021-04-17 04:26 | disposition left against medical advice (07) ==
PROVIDERS: Emergency Provider Emergency Medicine; PCP Emergency Medicine
DX: R07.9 Chest pain, unspecified (principal)
CPT/HCPCS: 93005; 99199